=== PATIENT | female | born 1970 | race Caucasian/White ===

== ENCOUNTER → 2018-01-26 | Outpatient (CLI) | payer OTHER ==
[~2018-01-26] MED LIST: ADAL40PE SQ; TRAM50TA2 PO
[2018-01-26 17:40] LABS: BASOPHILS % (AUTO) 0.8 % (0.0-5.0); EOSINOPHILS % (AUTO) 4.1 % (0.0-8.0); HEMATOCRIT 37.1 % (36-48); LYMPHOCYTES % (AUTO) 26.6 % (21.0-51.0); MEAN CORPUSCULAR HEMOGLOBIN 31.9 pg (27.0-33.0); MEAN CORPUSCULAR HGB CONC 34.1 g/dL (32.0-36.0); MEAN CORPUSCULAR VOLUME 93.6 fL (79-99); MONOCYTES % (AUTO) 10.9 % (3.0-13.0); NEUTROPHILS % (AUTO) 57.6 % (40.0-77.0); PLATELET COUNT (AUTO) 276 K/uL (130-400); RED BLOOD CELL COUNT(AUTO) 3.97 MIL/uL (4.00-5.50); RED CELL DISTRIBUTION WIDTH 14.1 % (11.0-15.5); WHITE BLOOD COUNT (AUTO) 5.9 K/uL (4.8-10.8)
[2018-01-26 18:18] LABS: ALBUMIN 3.4 g/dL (3.5-5.0); BILIRUBIN,TOTAL 0.3 mg/dL (0.2-1.0); HIGH SENSITIVITY CRP 1.15 mg/L (0.0-3.0); POTASSIUM 3.7 mmol/L (3.5-5.1); TOTAL PROTEIN, SERUM 7.5 g/dL (6.0-8.3)
[2018-01-26 18:44] LABS: ERYTHROCYTE SEDIMENTATION RATE 33 MM/HR (0-20)
[2018-01-27 07:30] LABS: HEPATITIS Bs ANTIGEN SCREEN P Negative (Negative)
== END | disposition home or self-care (01) ==
LOC: LAB 07:47
PROVIDERS: ATTEND Internal Medicine Gastroenterology
DX: K51.50 Left sided colitis without complications (principal); K21.9 Gastro-esophageal reflux disease without esophagitis; Z72.89 Other problems related to lifestyle
CPT/HCPCS: 36415; 80053; 82306; 83993; 85025; 85651; 86141; 86480; 87340

== ENCOUNTER → 2018-02-21 | Outpatient (CLI) | payer OTHER | END | disposition home or self-care (01) | LOC: RAH 07:57 | PROVIDERS: ATTEND Internal Medicine Gastroenterology | DX: Z11.1 Encounter for screening for respiratory tuberculosis (principal); K51.519 Left sided colitis with unspecified complications | CPT/HCPCS: 71045 ==

== ENCOUNTER → 2018-02-25 | Outpatient (CLI) | payer OTHER ==
[2018-02-25 10:05] LABS: BASOPHILS % (AUTO) 0.4 % (0.0-5.0); EOSINOPHILS % (AUTO) 3.4 % (0.0-8.0); HEMATOCRIT 36.8 % (36-48); LYMPHOCYTES % (AUTO) 22.1 % (21.0-51.0); MEAN CORPUSCULAR HEMOGLOBIN 32.2 pg (27.0-33.0); MEAN CORPUSCULAR HGB CONC 34.4 g/dL (32.0-36.0); MEAN CORPUSCULAR VOLUME 93.8 fL (79-99); MONOCYTES % (AUTO) 10.3 % (3.0-13.0); NEUTROPHILS % (AUTO) 63.8 % (40.0-77.0); PLATELET COUNT (AUTO) 268 K/uL (130-400); RED BLOOD CELL COUNT(AUTO) 3.93 MIL/uL (4.00-5.50); RED CELL DISTRIBUTION WIDTH 12.9 % (11.0-15.5); WHITE BLOOD COUNT (AUTO) 6.5 K/uL (4.8-10.8)
== END | disposition home or self-care (01) ==
LOC: LAB 09:33
PROVIDERS: ATTEND Family Medicine
DX: R59.1 Generalized enlarged lymph nodes (principal)
CPT/HCPCS: 36415; 85025

== ENCOUNTER 2018-05-09 11:36 | Emergency (ER) | payer OTHER ==
[2018-05-09] MEDS ORDERED: MAG HYDROX/AL HYDROX/SIMETH ES 30 ML SUSP UDCUP ONE (12:06)
[2018-05-09] MEDS ORDERED: LIDOCAINE HCL 2% VISCOUS 15 ML UDCUP ONE (12:06)
[2018-05-09 12:08] LABS: BASOPHILS % (AUTO) 0.4 % (0.0-5.0); EOSINOPHILS % (AUTO) 7.1 % (0.0-8.0); HEMATOCRIT 35.4 % (36-48); LYMPHOCYTES % (AUTO) 19.8 % (21.0-51.0); MEAN CORPUSCULAR HGB CONC 33.3 g/dL (32.0-36.0); MEAN CORPUSCULAR VOLUME 93.1 fL (79-99); MONOCYTES % (AUTO) 6.5 % (3.0-13.0); NEUTROPHILS % (AUTO) 66.2 % (40.0-77.0); NUCLEATED RED BLOOD CELLS 0.1 % (0.0-0.19); PLATELET COUNT (AUTO) 369 K/uL (130-400); RED CELL DISTRIBUTION WIDTH 13.5 % (11.0-15.5)
[2018-05-09 12:12] LABS: APPEARANCE,URINE Clear (CLEAR); BILIRUBIN,URINE Negative (NEGATIVE); COLOR,URINE Yellow (YELLOW); GLUCOSE, URINE (UA) Negative (NEGATIVE); KETONES,URINE Negative (NEGATIVE); LEUKOCYTE ESTERASE ,URINE Small (NEGATIVE); NITRATE,URINE Negative (NEGATIVE); OCCULT BLOOD,URINE Large (NEGATIVE); PROTEIN,URINE Negative (NEGATIVE); UROBILINOGEN,URINE 0.2 mg/dL (0.2-1.0)
[2018-05-09 12:14] LABS: HCG,QUAL RESULT NEGATIVE (NEGATIVE)
[2018-05-09 12:17] LABS: CREATININE 0.8 mg/dL (0.5-1.5); POTASSIUM 3.5 mmol/L (3.5-5.1)
[2018-05-09 12:22] LABS: ALBUMIN 3.1 g/dL (3.5-5.0); BILIRUBIN,TOTAL 0.4 mg/dL (0.2-1.0); TOTAL PROTEIN, SERUM 6.8 g/dL (6.0-8.3)
[2018-05-09 12:23] LABS: BACTERIA,URINE Few /HPF (None Seen); MUCUS,URINE Moderate LPF (None Seen); RBC,URINE 51-100 /HPF (0-1)
[2018-05-09] MEDS ORDERED: KETOROLAC TROMETHAMINE 30MG/ML ONE (13:30)
[2018-05-09] MEDS ORDERED: FAMOTIDINE/PF 20 MG/2 ML VIAL IV ONE (13:31)
== END 2018-05-09 13:51 | disposition home or self-care (01) ==
LOC: EDH 11:36
DX: R10.13 Epigastric pain (principal); R11.0 Nausea; Z88.8 Allergy status to other drugs, medicaments and biological substances
CPT/HCPCS: 36415; 74176; 80053; 81001; 81025; 82150; 82550; 83690; 84484; 85025; 93005; 96374; 96375; 99284; J1885; J3490

== ENCOUNTER 2018-12-07 19:48 | Emergency (ER) | payer OTHER ==
[2018-12-07] MEDS ORDERED: METHYLPREDNISOLONE SOD SUCC 125MG/2ML VIAL ONE (20:09)
[2018-12-07] MEDS ORDERED: DiphenhydrAMINE HCL 50 MG/ML VIAL ONE (20:09)
[2018-12-07] MEDS ORDERED: FAMOTIDINE/PF 20 MG/2 ML VIAL IV ONE (20:10)
[2018-12-07] MEDS ORDERED: SODIUM CHLORIDE 0.9% 1000ML 1,000 ML IV ONE (20:11)
== END 2018-12-07 20:55 | disposition home or self-care (01) ==
LOC: EDH 19:48
DX: L50.0 Allergic urticaria (principal); Z88.1 Allergy status to other antibiotic agents; Z98.890 Other specified postprocedural states
CPT/HCPCS: 96374; 96375; 99284; J1200; J2930; J3490; J7030

== ENCOUNTER 2019-04-01 09:10 | Emergency (ER) | payer OTHER ==
[2019-04-01 09:41] LABS: BASOPHILS % (AUTO) 0.2 % (0.0-5.0); EOSINOPHILS % (AUTO) 1.7 % (0.0-8.0); HEMATOCRIT 36.9 % (36-48); LYMPHOCYTES % (AUTO) 1.9 % (21.0-51.0); MEAN CORPUSCULAR HEMOGLOBIN 30.8 pg (27.0-33.0); MEAN CORPUSCULAR VOLUME 90.6 fL (79-99); MONOCYTES % (AUTO) 4.2 % (3.0-13.0); PLATELET COUNT (AUTO) 233 K/uL (130-400); RED BLOOD CELL COUNT(AUTO) 4.08 MIL/uL (4.00-5.50); WHITE BLOOD COUNT (AUTO) 10.4 K/uL (4.8-10.8)
[2019-04-01 09:45] LABS: APPEARANCE,URINE Clear (CLEAR); BILIRUBIN,URINE Negative (NEGATIVE); COLOR,URINE Yellow (YELLOW); GLUCOSE, URINE (UA) Negative (NEGATIVE); KETONES,URINE Trace mg/dL (NEGATIVE); LEUKOCYTE ESTERASE ,URINE Negative (NEGATIVE); NITRATE,URINE Negative (NEGATIVE); OCCULT BLOOD,URINE Large (NEGATIVE); PROTEIN,URINE Negative (NEGATIVE); UROBILINOGEN,URINE 0.2 mg/dL (0.2-1.0)
[2019-04-01 09:49] LABS: CREATININE 0.9 mg/dL (0.5-1.5); INR 0.92 (0.85-1.15); PARTIAL THROMBOPLASTIN TIME 23.1 SEC (26.3-35.5); POTASSIUM 3.9 mmol/L (3.5-5.1); PROTHROMBIN TIME 9.7 SEC (9.6-11.6)
[2019-04-01 09:53] LABS: ALBUMIN 3.3 g/dL (3.5-5.0); BILIRUBIN,TOTAL 0.3 mg/dL (0.2-1.0); TOTAL PROTEIN, SERUM 7.1 g/dL (6.0-8.3)
[2019-04-01 10:17] LABS: BACTERIA,URINE Rare /HPF (None Seen); MUCUS,URINE Moderate LPF (None Seen); WBC,URINE None Seen /HPF (0-1)
[2019-04-01] MEDS ORDERED: KETOROLAC TROMETHAMINE 30MG/ML ONE (10:54)
[2019-04-01] MEDS ORDERED: DiphenhydrAMINE HCL 50 MG/ML VIAL ONE (11:52)
[2019-04-01] MEDS ORDERED: HYOSCYAMINE SULFATE 0.125 MG TAB.SUBL SL ONE (12:04)
== END 2019-04-01 13:52 | disposition home or self-care (01) ==
LOC: EDH 09:10
DX: E86.0 Dehydration (principal); R10.32 Left lower quadrant pain; R50.9 Fever, unspecified; R51 Headache; Z90.49 Acquired absence of other specified parts of digestive tract; Z88.8 Allergy status to other drugs, medicaments and biological substances
CPT/HCPCS: 36415; 74176; 80053; 81001; 81025; 82150; 82550; 83605; 83690; 84484; 85025; 85610; 85651; 85730; 86140; 87040 ×2; 87804 ×2; 87880; 93005; 96361; 96374; 96375; 99285; J1200; J1885

== ENCOUNTER → 2019-04-04 | Outpatient (CLI) | payer OTHER | END | disposition home or self-care (01) | LOC: LAB 07:48 | PROVIDERS: ATTEND Internal Medicine Gastroenterology | DX: K51.90 Ulcerative colitis, unspecified, without complications (principal) | CPT/HCPCS: 87046 ==

== ENCOUNTER → 2019-04-27 | Outpatient (CLI) | payer OTHER ==
[2019-05-01 07:14] LABS: HEPATITIS Bs ANTIGEN SCREEN P Negative (Negative)
== END | disposition home or self-care (01) ==
LOC: LAB 15:06
PROVIDERS: ATTEND Internal Medicine Gastroenterology
DX: K51.519 Left sided colitis with unspecified complications (principal)
CPT/HCPCS: 36415; 86480; 87340

== ENCOUNTER 2020-02-18 17:45 | Emergency (ER) | payer OTHER ==
[2020-02-18] MEDS ORDERED: ACETAMINOPHEN 325 MG TAB ONE (18:05)
[2020-02-18 18:56] LABS: APPEARANCE,URINE Clear (CLEAR); BILIRUBIN,URINE Negative (NEGATIVE); COLOR,URINE Yellow (YELLOW); GLUCOSE, URINE (UA) Negative (NEGATIVE); KETONES,URINE Negative (NEGATIVE); LEUKOCYTE ESTERASE ,URINE Negative (NEGATIVE); NITRATE,URINE Negative (NEGATIVE); OCCULT BLOOD,URINE Negative (NEGATIVE); PH,URINE 5.5 (5.0-8.0); PROTEIN,URINE Negative (NEGATIVE); UROBILINOGEN,URINE 0.2 mg/dL (0.2-1.0)
[2020-02-18 19:00] LABS: HCG,QUAL RESULT NEGATIVE (NEGATIVE)
[2020-02-18 19:10] LABS: RAPID GROUP A STREP NEGATIVE (NEGATIVE)
== END 2020-02-18 19:50 | disposition home or self-care (01) ==
LOC: EDH 17:45
DX: J02.9 Acute pharyngitis, unspecified (principal); R50.9 Fever, unspecified; M79.10 Myalgia, unspecified site; Z20.828 Contact with and (suspected) exposure to other viral communicable diseases; Z90.49 Acquired absence of other specified parts of digestive tract
CPT/HCPCS: 81003; 81025; 87804; 87880

== ENCOUNTER 2021-03-24 06:28 | Day surgery (SDC) | payer OTHER ==
[~2021-03-24] VITALS: Ht 154.9 cm; Wt 59.1 kg
[~2021-03-24 06:28] MED LIST changes: +0.9%NACL 1000ML 1,000 ML IV ONE
[2021-03-24 06:50] VITALS: BP 109/64
[2021-03-24 07:19] LABS: CREATININE 0.8 mg/dL (0.5-1.5); POTASSIUM 4.5 mmol/L (3.5-5.1)
[2021-03-24] MEDS ORDERED: ACET-2743 PO (07:51)
[2021-03-24] MEDS ORDERED: OMEG-148 PO (07:52)
[2021-03-24] MEDS ORDERED: PROPOFOL 10 MG/ML 20ML VIAL IV ONE (09:17)
[2021-03-24 09:40] VITALS: BP 89/53
[2021-03-24 09:53] VITALS: BP 99/50
[2021-03-24 10:00] VITALS: BP 94/57
== END 2021-03-24 10:05 | disposition home or self-care (01) ==
LOC: DAH 06:28 → ENDO 06:28
PROVIDERS: ATTEND Internal Medicine Gastroenterology
DX: Z12.11 Encounter for screening for malignant neoplasm of colon (principal); K51.50 Left sided colitis without complications; K52.9 Noninfective gastroenteritis and colitis, unspecified; F41.9 Anxiety disorder, unspecified; F32.9 Major depressive disorder, single episode, unspecified; E55.9 Vitamin D deficiency, unspecified; Z88.8 Allergy status to other drugs, medicaments and biological substances; Z79.899 Other long term (current) drug therapy; Z20.822 Contact with and (suspected) exposure to COVID-19
CPT/HCPCS: 36415; 45380; 80048; 84703; 87635; A4215 ×2; A4221; A4222; A4223; A4606; A4620; A4663; C9803; J2704; J7030

== ENCOUNTER → 2021-09-16 | Outpatient (CLI) | payer OTHER ==
[~2021-09-16] MED LIST changes: -0.9%NACL 1000ML 1,000 ML IV ONE; +ACET-2743 PO; -ADAL40PE SQ; +OMEG-148 PO; -TRAM50TA2 PO
== END | disposition home or self-care (01) ==
LOC: RAH 11:08
PROVIDERS: ATTEND Obstetrics & Gynecology
DX: D25.9 Leiomyoma of uterus, unspecified (principal); R93.89 Abnormal findings on diagnostic imaging of other specified body structures; N92.1 Excessive and frequent menstruation with irregular cycle; Z97.5 Presence of (intrauterine) contraceptive device
CPT/HCPCS: 76830

== ENCOUNTER 2022-02-06 10:20 | Emergency (ER) | payer OTHER ==
[~2022-02-06] VITALS: Ht 154.9 cm; Wt 61.2 kg
[2022-02-06 10:42] LABS: BASOPHILS % (AUTO) 0.8 % (0.0-5.0); EOSINOPHILS % (AUTO) 2.4 % (0.0-8.0); HEMATOCRIT 31.2 % (36-48); LYMPHOCYTES % (AUTO) 13.1 % (21.0-51.0); MEAN CORPUSCULAR HEMOGLOBIN 23.3 pg (27.0-33.0); MEAN CORPUSCULAR HGB CONC 29.8 g/dL (32.0-36.0); MONOCYTES % (AUTO) 8.7 % (3.0-13.0); NEUTROPHILS % (AUTO) 74.7 % (40.0-77.0); PLATELET COUNT (AUTO) 265 K/uL (130-400); RED CELL DISTRIBUTION WIDTH 17.9 % (11.0-15.5); WHITE BLOOD COUNT (AUTO) 7.4 K/uL (4.8-10.8)
[2022-02-06 10:53] LABS: CREATININE 0.8 mg/dL (0.5-1.5); POTASSIUM 4.2 mmol/L (3.5-5.1)
[2022-02-06 10:58] LABS: ALBUMIN 3.4 g/dL (3.5-5.0); TOTAL PROTEIN, SERUM 7.4 g/dL (6.0-8.3)
[2022-02-06 11:45] LABS: APPEARANCE,URINE CLEAR (CLEAR); BILIRUBIN,URINE NEGATIVE (NEGATIVE); COLOR,URINE LIGHT-YELLOW (YELLOW); GLUCOSE, URINE (UA) NEGATIVE (NEGATIVE); KETONES,URINE NEGATIVE (NEGATIVE); LEUKOCYTE ESTERASE ,URINE NEGATIVE Leu/uL (NEGATIVE); NITRATE,URINE NEGATIVE (NEGATIVE); PH,URINE 5.5 (5.0-8.0); PROTEIN,URINE NEGATIVE (NEGATIVE); UROBILINOGEN,URINE 0.2 mg/dL (0.2-1.0)
[2022-02-06 12:14] LABS: MUCUS,URINE RARE LPF (None Seen); RBC,URINE 0-1 /HPF (0-1); SQUAMOUS EPITHELIAL CELL,UR RARE /HPF (0-2)
[2022-02-06] MEDS ORDERED: MECLIZINE HCL 25 MG TABLET PO SCH (12:32)
[2022-02-06] MEDS ORDERED: MECLIZINE HCL 25 MG TABLET ONE (12:33)
[2022-02-06] MEDS ORDERED: 0.9%NACL 1000ML 1,000 ML IV SCH (13:00)
[2022-02-06] MEDS ORDERED: DEXAMETHASONE SOD PHOSPHATE 4 MG/ML 1ML VIAL IV STA (13:53)
[2022-02-06 15:10] VITALS: BP 120/69
[2022-02-06] MEDS ORDERED: MECL-262 PO (15:28)
[2022-02-06] MEDS ORDERED: DOCU-116 PO (15:28)
[2022-02-06] MEDS ORDERED: FERR324T4 PO (15:28)
== END 2022-02-06 16:06 | disposition home or self-care (01) ==
LOC: EDH 10:20
DX: R42 Dizziness and giddiness (principal); H92.02 Otalgia, left ear; R10.9 Unspecified abdominal pain; Z88.1 Allergy status to other antibiotic agents; Z90.49 Acquired absence of other specified parts of digestive tract
CPT/HCPCS: 99285; 96374; 70450; 96361; 84484; 80053; 85025; 87804 ×2; 82948; 81001; 36415; 93005; J1100; J7030; 96375

== ENCOUNTER 2022-02-22 10:35 | Day surgery (SDC) | payer OTHER ==
[2022-02-22] VITALS (7 sets, daily range): BP systolic 95–133; BP diastolic 79–83
[~2022-02-22 10:35] MED LIST changes: +DOCU-116 PO; +FERR324T4 PO; +MECL-262 PO
[2022-02-22] MEDS ORDERED: PROPOFOL 10 MG/ML 20ML VIAL IV ONE (12:16)
[2022-02-22] MEDS ORDERED: LIDOCAINE PF 100MG/5ML (2%) SYRINGE 5ML ONE (12:16)
== END 2022-02-22 14:38 | disposition home or self-care (01) ==
LOC: DAH 10:35 → ENDO 10:35
PROVIDERS: ATTEND Internal Medicine Gastroenterology
DX: D50.9 Iron deficiency anemia, unspecified (principal); Z20.822 Contact with and (suspected) exposure to COVID-19; K62.5 Hemorrhage of anus and rectum; K51.00 Ulcerative (chronic) pancolitis without complications; K62.89 Other specified diseases of anus and rectum; K52.89 Other specified noninfective gastroenteritis and colitis; E55.9 Vitamin D deficiency, unspecified; K21.9 Gastro-esophageal reflux disease without esophagitis; F32.A Depression, unspecified; F41.9 Anxiety disorder, unspecified; Z90.49 Acquired absence of other specified parts of digestive tract; Z98.890 Other specified postprocedural states
CPT/HCPCS: 87426; 45380; 43239; 84703; 36415; J2001; J2704; A4620; A4215; A4223; A4222; A4221; A4663; A4216; J7030; A4606

== ENCOUNTER → 2022-03-16 | Outpatient (CLI) | payer OTHER ==
[2022-03-16 08:57] LABS: BASOPHILS % (AUTO) 0.2 % (0.0-5.0); EOSINOPHILS % (AUTO) 0.3 % (0.0-8.0); HEMATOCRIT 32.4 % (36-48); LYMPHOCYTES % (AUTO) 24.2 % (21.0-51.0); MEAN CORPUSCULAR HEMOGLOBIN 23.3 pg (27.0-33.0); MEAN CORPUSCULAR HGB CONC 29.9 g/dL (32.0-36.0); MEAN CORPUSCULAR VOLUME 77.7 fL (79-99); MONOCYTES % (AUTO) 7.8 % (3.0-13.0); NEUTROPHILS % (AUTO) 65.9 % (40.0-77.0); NUCLEATED RED BLOOD CELLS 0.1 % (0.0-0.19); PLATELET COUNT (AUTO) 453 K/uL (130-400); RED BLOOD CELL COUNT(AUTO) 4.17 MIL/uL (4.00-5.50); RED CELL DISTRIBUTION WIDTH 18.5 % (11.0-15.5); WHITE BLOOD COUNT (AUTO) 16.1 K/uL (4.8-10.8)
[2022-03-16 09:28] LABS: % IRON SATURATION 6.6 % (22-44)
[2022-03-16 23:09] LABS: HEPATITIS A IGM ANTIBODY Non-Reactive (Nonreactive); HEPATITIS B SURFACE ANTIGEN Non-Reactive (Nonreactive); HEPATITIS C ANTIBODY Non-Reactive (Nonreactive)
[2022-03-16 23:10] LABS: HEPATITIS B CORE IGM ANTIBODY Non-Reactive (Negative)
== END | disposition home or self-care (01) ==
LOC: LAB 08:00
PROVIDERS: ATTEND Internal Medicine Gastroenterology
DX: K51.00 Ulcerative (chronic) pancolitis without complications (principal)
CPT/HCPCS: 36415; 80074; 82306; 82728; 83540; 83550; 83993; 85025; 86140; 86480; 86706

== ENCOUNTER → 2022-03-18 | Outpatient (CLI) | payer OTHER | END | disposition home or self-care (01) | LOC: LAB 03-17 13:41 | PROVIDERS: ATTEND Internal Medicine Gastroenterology | DX: K51.00 Ulcerative (chronic) pancolitis without complications (principal) | CPT/HCPCS: 36415; 82542 ==

== ENCOUNTER → 2022-06-08 | Outpatient (CLI) | payer OTHER | END | disposition home or self-care (01) | LOC: LAB 08:08 | PROVIDERS: ATTEND Internal Medicine | DX: K51.00 Ulcerative (chronic) pancolitis without complications (principal) | CPT/HCPCS: 36415; 80074; 82306; 86480; 86707; 87350 ==

== ENCOUNTER → 2022-06-25 | Outpatient (CLI) | payer OTHER ==
[2022-06-25 14:08] LABS: BASOPHILS % (AUTO) 0.5 % (0.0-5.0); EOSINOPHILS % (AUTO) 1.7 % (0.0-8.0); HEMATOCRIT 31.3 % (36-48); LYMPHOCYTES % (AUTO) 18.9 % (21.0-51.0); MEAN CORPUSCULAR HEMOGLOBIN 26.6 pg (27.0-33.0); MEAN CORPUSCULAR HGB CONC 30.7 g/dL (32.0-36.0); MEAN CORPUSCULAR VOLUME 86.7 fL (79-99); MONOCYTES % (AUTO) 8.9 % (3.0-13.0); NEUTROPHILS % (AUTO) 69.7 % (40.0-77.0); PLATELET COUNT (AUTO) 356 K/uL (130-400); RED BLOOD CELL COUNT(AUTO) 3.61 MIL/uL (4.00-5.50); RED CELL DISTRIBUTION WIDTH 16.7 % (11.0-15.5); WHITE BLOOD COUNT (AUTO) 9.8 K/uL (4.8-10.8)
[2022-06-25 14:20] LABS: % IRON SATURATION 8.4 % (22-44)
[2022-06-25 14:24] LABS: ALBUMIN 3.5 g/dL (3.5-5.0); CREATININE 0.8 mg/dL (0.5-1.5); POTASSIUM 3.9 mmol/L (3.5-5.1); TOTAL PROTEIN, SERUM 7.5 g/dL (6.0-8.3)
[2022-06-25 22:32] LABS: HEPATITIS B CORE IGM ANTIBODY Non-Reactive (Negative); HEPATITIS B SURFACE ANTIGEN Non-Reactive (Nonreactive)
== END | disposition home or self-care (01) ==
LOC: LAB 13:18
PROVIDERS: ATTEND Internal Medicine Gastroenterology
DX: K51.00 Ulcerative (chronic) pancolitis without complications (principal); D50.9 Iron deficiency anemia, unspecified
CPT/HCPCS: 36415; 80053; 82728; 83540; 83550; 85025; 86704; 86705; 86706; 87340

== ENCOUNTER 2022-08-03 14:31 | Emergency (ER) | payer OTHER ==
[~2022-08-03] VITALS: Ht 152.4 cm; Wt 59.9 kg
[2022-08-03 15:40] LABS: BASOPHILS % (AUTO) 0.4 % (0.0-5.0); EOSINOPHILS % (AUTO) 4.8 % (0.0-8.0); HEMATOCRIT 31.9 % (36-48); LYMPHOCYTES % (AUTO) 13.3 % (21.0-51.0); MEAN CORPUSCULAR HEMOGLOBIN 27.2 pg (27.0-33.0); MEAN CORPUSCULAR HGB CONC 31.3 g/dL (32.0-36.0); MEAN CORPUSCULAR VOLUME 86.7 fL (79-99); MONOCYTES % (AUTO) 6.8 % (3.0-13.0); NEUTROPHILS % (AUTO) 74.3 % (40.0-77.0); PLATELET COUNT (AUTO) 440 K/uL (130-400); RED BLOOD CELL COUNT(AUTO) 3.68 MIL/uL (4.00-5.50); RED CELL DISTRIBUTION WIDTH 19.1 % (11.0-15.5)
[2022-08-03 15:53] LABS: POTASSIUM 3.3 mmol/L (3.5-5.1)
[2022-08-03 15:57] LABS: ALBUMIN 2.9 g/dL (3.5-5.0); TOTAL PROTEIN, SERUM 6.8 g/dL (6.0-8.3)
[2022-08-03] MEDS ORDERED: IOHEXOL 350 MG/ML 100ML INFUS..BTL IV ONE (17:44)
[2022-08-03] MEDS ORDERED: FERR324T PO (19:09)
[2022-08-03] MEDS ORDERED: PRED20TA3 PO (19:09)
[2022-08-03] MEDS ORDERED: PREDNISONE 20 MG TABLET PO ONE (19:30)
[2022-08-03 19:49] VITALS: BP 136/82
== END 2022-08-03 19:53 | disposition home or self-care (01) ==
LOC: EDH 14:31
DX: K51.90 Ulcerative colitis, unspecified, without complications (principal); Z79.899 Other long term (current) drug therapy; Z98.890 Other specified postprocedural states; Z88.8 Allergy status to other drugs, medicaments and biological substances
CPT/HCPCS: 99285; 74177; 82270; 80053; 85025; 86850; 86900; 86901; 36415; Q9967

== ENCOUNTER → 2022-08-10 | Outpatient (CLI) | payer OTHER ==
[~2022-08-10] MED LIST changes: +FERR324T PO; +PRED20TA3 PO
[2022-08-10 09:00] LABS: CHOLESTEROL 212 mg/dL (<200); HDL CHOLESTEROL 59 mg/dL (35-85); LDL DIRECT 130 mg/dL (0-99); TRIGLYCERIDES 98 mg/dL (30-200)
== END | disposition home or self-care (01) ==
LOC: LAB 08:12
PROVIDERS: ATTEND Urology
DX: K51.00 Ulcerative (chronic) pancolitis without complications (principal)
CPT/HCPCS: 36415; 80061

== ENCOUNTER → 2022-11-29 | Outpatient (CLI) | payer OTHER ==
[2022-11-29 08:42] LABS: BASOPHILS % (AUTO) 0.8 % (0.0-5.0); EOSINOPHILS % (AUTO) 3.4 % (0.0-8.0); HEMATOCRIT 30.1 % (36-48); LYMPHOCYTES % (AUTO) 13.9 % (21.0-51.0); MEAN CORPUSCULAR HEMOGLOBIN 23.3 pg (27.0-33.0); MEAN CORPUSCULAR HGB CONC 28.9 g/dL (32.0-36.0); MEAN CORPUSCULAR VOLUME 80.5 fL (79-99); MONOCYTES % (AUTO) 8.2 % (3.0-13.0); NEUTROPHILS % (AUTO) 72.4 % (40.0-77.0); PLATELET COUNT (AUTO) 444 K/uL (130-400); RED BLOOD CELL COUNT(AUTO) 3.74 MIL/uL (4.00-5.50); RED CELL DISTRIBUTION WIDTH 15.9 % (11.0-15.5); RETICULOCYTE % (AUTO) 1.95 % (0.42-2.23); WHITE BLOOD COUNT (AUTO) 9.1 K/uL (4.8-10.8)
[2022-11-29 09:21] LABS: % IRON SATURATION 2.1 % (22-44)
[2022-11-29 09:41] LABS: APPEARANCE,URINE CLOUDY (CLEAR); BILIRUBIN,URINE NEGATIVE (NEGATIVE); COLOR,URINE YELLOW (YELLOW); GLUCOSE, URINE (UA) NEGATIVE (NEGATIVE); KETONES,URINE NEGATIVE (NEGATIVE); LEUKOCYTE ESTERASE ,URINE NEGATIVE Leu/uL (NEGATIVE); NITRATE,URINE NEGATIVE (NEGATIVE); OCCULT BLOOD,URINE NEGATIVE (NEGATIVE); PH,URINE 5.5 (5.0-8.0); PROTEIN,URINE 10 mg/dL (NEGATIVE); UROBILINOGEN,URINE 0.2 mg/dL (0.2-1.0)
[2022-11-29 09:51] LABS: BACTERIA,URINE FEW /HPF (None Seen); MUCUS,URINE MOD LPF (None Seen); SQUAMOUS EPITHELIAL CELL,UR MANY /HPF (0-2)
[2022-11-29 10:12] LABS: ALBUMIN 3.3 g/dL (3.5-5.0); CREATININE 0.8 mg/dL (0.5-1.5); POTASSIUM 3.9 mmol/L (3.5-5.1); TOTAL PROTEIN, SERUM 7.6 g/dL (6.0-8.3)
== END | disposition home or self-care (01) ==
LOC: LAB 11-26 10:22
PROVIDERS: ATTEND Family Medicine
DX: K51.90 Ulcerative colitis, unspecified, without complications (principal); D50.0 Iron deficiency anemia secondary to blood loss (chronic); E78.00 Pure hypercholesterolemia, unspecified; Z79.60 Long term (current) use of unspecified immunomodulators and immunosuppressants
CPT/HCPCS: 36415; 80053; 80061; 81001; 82607; 82728; 85025; 87088

== ENCOUNTER → 2023-02-10 | Outpatient (CLI) | payer OTHER ==
[2023-02-10 19:51] LABS: HEMATOCRIT 33.3 % (36-48); MEAN CORPUSCULAR HEMOGLOBIN 29.2 pg (27.0-33.0); MEAN CORPUSCULAR HGB CONC 31.8 g/dL (32.0-36.0); MEAN CORPUSCULAR VOLUME 91.7 fL (79-99); NEUTROPHILS % (AUTO) 69.9 % (40.0-77.0); PLATELET COUNT (AUTO) 407 K/uL (130-400); RED BLOOD CELL COUNT(AUTO) 3.63 MIL/uL (4.00-5.50); WHITE BLOOD COUNT (AUTO) 8.2 K/uL (4.8-10.8)
[2023-02-10 19:52] LABS: BASOPHILS # (AUTO) 0.05 K/uL (0.00-0.20); BASOPHILS % (AUTO) 0.6 % (0.0-5.0); EOSINOPHILS # (AUTO) 0.33 K/uL (0.00-0.70); IMMATURE GRANULOCYTE ABSOLUTE 0.02 K/uL (0-1); LYMPHOCYTES # (AUTO) 1.4 K/uL (1.0-4.8); LYMPHOCYTES % (AUTO) 17.5 % (21.0-51.0); MONOCYTES # (AUTO) 0.6 K/uL (0.1-1.0); MONOCYTES % (AUTO) 7.8 % (3.0-13.0); NEUTROPHILS # (AUTO) 5.7 K/uL (1.8-7.7)
== END | disposition home or self-care (01) ==
LOC: LAB 11:00
PROVIDERS: ATTEND Internal Medicine Gastroenterology
DX: K51.00 Ulcerative (chronic) pancolitis without complications (principal); D50.9 Iron deficiency anemia, unspecified; E55.9 Vitamin D deficiency, unspecified
CPT/HCPCS: 36415; 82306; 83993; 85025; 86140

== ENCOUNTER 2023-04-06 05:56 | Day surgery (SDC) | payer OTHER ==
[2023-04-06] VITALS (8 sets, daily range): BP systolic 108–119; BP diastolic 71–77; PULSE 61–86; RESP 14–17
[~2023-04-06] VITALS: Ht 154.9 cm; Wt 65.8 kg
[2023-04-06] MEDS ORDERED: ADAL40SY SQ (06:56)
[2023-04-06] MEDS ORDERED: PROPOFOL 10 MG/ML 20ML VIAL IV ONE (07:10)
[2023-04-06] MEDS ORDERED: GLYCOPYRROLATE 0.2 MG/ML 5 ML VIAL ONE (07:10)
== END 2023-04-06 08:25 | disposition home or self-care (01) ==
LOC: DAH 05:56 → ENDO 05:56
PROVIDERS: ATTEND Internal Medicine Gastroenterology
DX: K51.00 Ulcerative (chronic) pancolitis without complications (principal); K62.5 Hemorrhage of anus and rectum; R19.05 Periumbilic swelling, mass or lump; F41.9 Anxiety disorder, unspecified; F32.A Depression, unspecified; D50.9 Iron deficiency anemia, unspecified; E55.9 Vitamin D deficiency, unspecified; Z90.49 Acquired absence of other specified parts of digestive tract; Z98.890 Other specified postprocedural states; Z79.899 Other long term (current) drug therapy
CPT/HCPCS: 45380; J2704; J3490; A4620; A4215 ×2; A4223; A7002; A4221; A4663; J7030; A4606

== ENCOUNTER → 2023-06-24 | Outpatient (CLI) | payer OTHER ==
[~2023-06-24] MED LIST changes: -ACET-2743 PO; +ADAL40SY SQ; -DOCU-116 PO; -FERR324T PO; -FERR324T4 PO; -MECL-262 PO; -OMEG-148 PO; -PRED20TA3 PO
[2023-06-24 08:48] LABS: BASOPHILS # (AUTO) 0.06 K/uL (0.00-0.20); EOSINOPHILS # (AUTO) 0.26 K/uL (0.00-0.70); EOSINOPHILS % (AUTO) 4.5 % (0.0-8.0); IMMATURE GRANULOCYTE ABSOLUTE 0.01 K/uL (0-1); LYMPHOCYTES # (AUTO) 1.4 K/uL (1.0-4.8); LYMPHOCYTES % (AUTO) 23.6 % (21.0-51.0); MEAN CORPUSCULAR HEMOGLOBIN 22.9 pg (27.0-33.0); MEAN CORPUSCULAR HGB CONC 30.3 g/dL (32.0-36.0); MEAN CORPUSCULAR VOLUME 75.6 fL (79-99); MONOCYTES # (AUTO) 0.5 K/uL (0.1-1.0); MONOCYTES % (AUTO) 8.4 % (3.0-13.0); NEUTROPHILS # (AUTO) 3.6 K/uL (1.8-7.7); NEUTROPHILS % (AUTO) 62.3 % (40.0-77.0); PLATELET COUNT (AUTO) 394 K/uL (130-400); RED BLOOD CELL COUNT(AUTO) 3.97 MIL/uL (4.00-5.50); RED CELL DISTRIBUTION WIDTH 18.3 % (11.0-15.5); WHITE BLOOD COUNT (AUTO) 5.8 K/uL (4.8-10.8)
[2023-06-24 09:14] LABS: % IRON SATURATION 3.5 % (22-44); ALBUMIN 3.2 g/dL (3.5-5.0); BILIRUBIN,TOTAL 0.3 mg/dL (0.2-1.0); CREATININE 0.7 mg/dL (0.5-1.5); POTASSIUM 4.2 mmol/L (3.5-5.1); TOTAL PROTEIN, SERUM 7.3 g/dL (6.0-8.3)
[2023-06-24 09:24] LABS: INR <= 0.93 (0.85-1.15); PROTHROMBIN TIME 9.9 SEC (9.6-11.6)
[2023-06-24 09:26] LABS: PARTIAL THROMBOPLASTIN TIME 22.9 SEC (26.3-35.5)
[2023-06-24 16:51] LABS: HEPATITIS A IGM ANTIBODY Non-Reactive (Nonreactive); HEPATITIS B CORE IGM ANTIBODY Non-Reactive (Negative); HEPATITIS B SURFACE ANTIGEN Non-Reactive (Nonreactive); HEPATITIS C ANTIBODY Non-Reactive (Nonreactive)
[2023-06-28 18:10] LABS: QUANTIFERON MITOGEN VALUE >10.00 IU/mL (.)
== END | disposition home or self-care (01) ==
LOC: LAB 07:56
PROVIDERS: ATTEND Internal Medicine
DX: K51.00 Ulcerative (chronic) pancolitis without complications (principal)
CPT/HCPCS: 36415; 80053; 80061; 80074; 82728; 83540; 83550; 83993; 85025; 85610; 85730; 86480; 86707; 87350

== ENCOUNTER → 2023-11-04 | Outpatient (CLI) | payer OTHER | END | disposition home or self-care (01) | LOC: LAB 13:52 | PROVIDERS: ATTEND Internal Medicine | DX: K51.00 Ulcerative (chronic) pancolitis without complications (principal) | CPT/HCPCS: 36415; 83993 ==

== ENCOUNTER → 2024-02-22 | Outpatient (CLI) | payer OTHER ==
[2024-02-22 09:16] LABS: BASOPHILS # (AUTO) 0.07 K/uL (0.00-0.20); BASOPHILS % (AUTO) 1.2 % (0.0-5.0); EOSINOPHILS # (AUTO) 0.21 K/uL (0.00-0.70); EOSINOPHILS % (AUTO) 3.5 % (0.0-8.0); HEMATOCRIT 29.1 % (36-48); IMMATURE GRANULOCYTE ABSOLUTE 0.02 K/uL (0-1); LYMPHOCYTES # (AUTO) 1.4 K/uL (1.0-4.8); LYMPHOCYTES % (AUTO) 23.9 % (21.0-51.0); MEAN CORPUSCULAR HEMOGLOBIN 21.3 pg (27.0-33.0); MEAN CORPUSCULAR HGB CONC 29.2 g/dL (32.0-36.0); MEAN CORPUSCULAR VOLUME 72.9 fL (79-99); MONOCYTES # (AUTO) 0.5 K/uL (0.1-1.0); MONOCYTES % (AUTO) 7.7 % (3.0-13.0); NEUTROPHILS # (AUTO) 3.8 K/uL (1.8-7.7); NEUTROPHILS % (AUTO) 63.4 % (40.0-77.0); PLATELET COUNT (AUTO) 433 K/uL (130-400); RED BLOOD CELL COUNT(AUTO) 3.99 MIL/uL (4.00-5.50); RED CELL DISTRIBUTION WIDTH 18.4 % (11.0-15.5)
[2024-02-22 09:37] LABS: INR 0.95 (0.85-1.15); PROTHROMBIN TIME 10.3 SEC (9.6-11.6)
[2024-02-22 09:38] LABS: PARTIAL THROMBOPLASTIN TIME 21.9 SEC (26.3-35.5)
[2024-02-22 09:46] LABS: % IRON SATURATION 2.7 % (22-44)
[2024-02-22 09:53] LABS: ALBUMIN 3.7 g/dL (3.5-5.0); BILIRUBIN,TOTAL 0.6 mg/dL (0.2-1.0); CREATININE 0.8 mg/dL (0.5-1.0); POTASSIUM 4.4 mmol/L (3.5-5.1)
== END | disposition home or self-care (01) ==
LOC: LAB 08:40
PROVIDERS: ATTEND Internal Medicine
DX: E55.9 Vitamin D deficiency, unspecified (principal); D50.9 Iron deficiency anemia, unspecified
CPT/HCPCS: 36415; 80053; 82306; 82728; 83540; 83550; 85025; 85610; 85730

== ENCOUNTER → 2024-03-12 | Outpatient (CLI) | payer OTHER ==
--- NOTE | 2024-03-12 09:49 | HMCIMG ---
CT CORONARY CALCIFICATION SCORING: Anatomic images were reviewed. The calcium score is being generated and reported separately. This report is for the visualized anatomy only. Visualized portions of the lungs are clear. Hilar and mediastinal structures appear normal. Osseous structures are unremarkable. Impression: 1. Negative noncardiac anatomic findings. 2. The calcium score is 0 consistent with absence of calcified plaque. CT was performed with one or more following dose reduction techniques: automated exposure control, adjustment of the mA and kv according to patient's size, or use of a iterative reconstruction technique.
== END | disposition home or self-care (01) ==
LOC: RAH 08:13
PROVIDERS: ATTEND Internal Medicine
DX: Z13.6 Encounter for screening for cardiovascular disorders (principal)
CPT/HCPCS: 75571

== ENCOUNTER 2024-05-08 08:42 | Emergency (ER) | payer OTHER ==
[~2024-05-08] VITALS: Ht 154.9 cm; Wt 63.5 kg
--- NOTE | 2024-05-08 09:00 | NUR ---
PATIENT VERBALIZED CONSENT FOR PELVIC EXAM WITH PROVIDER, NURSE, AND ORIENTEE PRESENT.
[2024-05-08 09:03] VITALS: BP 162/85; PULSE 68; RESP 16; TEMP 98.3; O2SAT 98
--- NOTE | 2024-05-08 09:12 | ERN ---
ED Note History of Present Illness Stated Complaint: IUD PIECE BROKE OFF Chief Complaint: FORIEGN BODY VAGINA Time Seen by MD: 08:49 Dictation: 54-year-old female she comes to the ED. Because she was told by [facility]. Because her IUD had filled out. The 75% only one of the arms. Of the other one. Was retained. She does not have any belly pain nausea vomiting bleeding flank pain fevers chills Allergies: Coded Allergies: metronidazole (Unverified Allergy, Unknown, 08/11/16) Home Meds Reported Medications Adalimumab (Humira) 40 Mg/0.4 Ml Syringekit, 40 MG SQ [id number] 04/06/23 Past Medical History Past Medical History: No Pertinent History, Other Additional Past Medical Hx: ULCERATIVE COLITIS Surgical History: Cholecystectomy, Other Surgical History Other: ULCERATIVE COLITIS Social History: Negative Review of System Dictation Constitutional: Negative for fever,chills, and weight loss Eyes: Negative for injury, pain,redness, and discharge ENT: Negative for injury,pain or swelling Cardiovascular: Negative for chest pain, palpitations, and edema Respiratory: Negative for shortness of breath, cough, and wheezing, Abdomen/GI: Negative for abdominal pain, nausea, vomiting, diarrhea, and constipation Back: Negative for injury and pain : Negative for injury, bleeding and discharge MS/Extremity: Negative for injury and deformity Skin: Negative for rash, and discoloration Neuro: Negative for headache, weakness, numbness, tingling, and seizure Psych: Negative for suicide ideation, homicidal ideation, and hallucinations Initial Vital Sign VS Vital Signs Date Time Temp Pulse Resp B/P (MAP) Pulse Ox O2 Delivery O2 Flow Rate FiO2 05/08/24 08:43 99.0 72 20 158/84 99 Room Air 0 05/08/24 09:03 21 Physical Exam Dictation With industry operations investigator present. It is to industry operations investigator as a nurse said retread technician. Did do a sensory exam with her permission her request. Did not see any cuts scrapes lesions. Any issues with the cervix. Was not able to see the one of the arms of the IUD. General: awake, alert, NAD Head/Face: Normocephalic, atraumatic Eyes: PERRL, EOMI, vision at baseline ENT: oral cavity clear, TMs clear, no signs of infection Neck: Trachea midline, supple, no nuchal rigidity Cardiovascular: RRR, normal S1/S2, No MRGs, no JVD Respiratory: CTAB, no respiratory distress, No rales or wheezes Abdomen: Soft, non-tender, non-distended, normal bowel sounds, no guarding or rebound. Skin: Warm, dry, normal turgor, no rash MS/Extremity: Pulses equal, no cyanosis, neurovascular intact, FROM Neuro: COAx4, GCS 15, strength 5/5, CN 2-12 intact, normal cerebellar exam, normal gait, Psych: Normal behavior, mood, and affect normal ED Course ED Course Vital Signs Date Time Temp Pulse Resp B/P (MAP) Pulse Ox O2 Delivery O2 Flow Rate FiO2 05/08/24 09:03 98.2 68 16 162/85 98 Room Air* 0 21 05/08/24 08:43 99.0 72 20 158/84 99 Room Air 0 Medical Decision Making MDM Told the patient I told the patient that there likely is I told patient that there likely is that there likely is a piece of retained IUD. But again given that she is not have any fevers chills abdominal pain any vaginal bleeding any flank pain any changes in symptomatology there is no signs now of infection. She will be stable for outpatient management with cystoscopy with OB Gyne. Given by that there was no the no foreign body was able to be visualized. But she is stable for discharge he was in agreement above-stated plan. DX & DISP Disposition: Discharge Departure Impression: Primary Impression: IUD complication Condition: Stable Referrals: VIOLETTE YATES MD (PCP) JOSE GUADALUPE BAGLEY MD May 08, 2024 09:12
--- NOTE | 2024-05-08 09:14 | NUR ---
PATIENT REPORTS TO ED WITH C\O OF IUD DISLODGED FROM CERVIX. PATIENT BROUGHT IN IUD THAT WAS DISLODGED. PROVIDER SHOWN SAMPLE. PATIENT VERBALIZES VAGINAL SPOTTING\BLEEDING X3 WEEKS. PATIENT DENIES PELVIC PAIN.
== END 2024-05-08 09:24 | disposition home or self-care (01) ==
LOC: EDH 08:42
DX: T83.9XXA Unspecified complication of genitourinary prosthetic device, implant and graft, initial encounter (principal); Z88.1 Allergy status to other antibiotic agents; Z90.49 Acquired absence of other specified parts of digestive tract; Y69 Unspecified misadventure during surgical and medical care; Y92.89 Other specified places as the place of occurrence of the external cause
CPT/HCPCS: 99281

== ENCOUNTER → 2024-05-10 | Outpatient (CLI) | payer OTHER ==
--- NOTE | 2024-05-10 16:41 | HMCIMG ---
ABD 1VW HISTORY: No additional history given. COMPARISON: None FINDINGS: A frontal projection of the abdomen was obtained. A nonspecific bowel gas pattern is seen. Fecal material is seen in the colon. Degenerative changes of the thoracolumbar spine are noted. IMPRESSION: 1. A nonspecific bowel gas pattern is seen.
== END | disposition home or self-care (01) ==
LOC: RAH 10:16
PROVIDERS: ATTEND Internal Medicine Cardiovascular Disease
DX: T83.39XD Other mechanical complication of intrauterine contraceptive device, subsequent encounter (principal); M47.815 Spondylosis without myelopathy or radiculopathy, thoracolumbar region; X58.XXXD Exposure to other specified factors, subsequent encounter
CPT/HCPCS: 74018

== ENCOUNTER → 2024-07-12 | Outpatient (CLI) | payer OTHER ==
--- NOTE | 2024-07-12 09:28 | HMCIMG ---
Exam Type: US ABDOMINAL COMPLETE Clinical Information: ulcerative chronic pancolitis without complications Comparison: None Findings: The liver shows normal echogenicity is otherwise unremarkable. Doppler evaluation shows patent portal and hepatic veins. The gallbladder is surgically absent. No bile duct dilatation is noted. The common bile duct measures 5 mm. The right kidney measures 10.4 x 4.6 cm. The left kidney measures 9.5 x 6 .2 cm. The kidneys show no hydronephrosis or calculi, masses or other abnormalities. The pancreas is unremarkable. The spleen is unremarkable. The aorta and inferior vena cava show no significant abnormalities. IMPRESSION: Status post cholecystectomy. Otherwise unremarkable exam.
[2024-07-12 10:19] LABS: BASOPHILS # (AUTO) 0.04 K/uL (0.00-0.20); BASOPHILS % (AUTO) 0.5 % (0.0-5.0); EOSINOPHILS # (AUTO) 0.12 K/uL (0.00-0.70); EOSINOPHILS % (AUTO) 1.5 % (0.0-8.0); HEMATOCRIT 30.9 % (36-48); IMMATURE GRANULOCYTE ABSOLUTE 0.04 K/uL (0-1); LYMPHOCYTES # (AUTO) 1.3 K/uL (1.0-4.8); LYMPHOCYTES % (AUTO) 16.2 % (21.0-51.0); MEAN CORPUSCULAR HEMOGLOBIN 21.7 pg (27.0-33.0); MEAN CORPUSCULAR HGB CONC 28.8 g/dL (32.0-36.0); MEAN CORPUSCULAR VOLUME 75.2 fL (79-99); MONOCYTES # (AUTO) 0.5 K/uL (0.1-1.0); MONOCYTES % (AUTO) 5.7 % (3.0-13.0); NEUTROPHILS # (AUTO) 6.2 K/uL (1.8-7.7); NEUTROPHILS % (AUTO) 75.6 % (40.0-77.0); PLATELET COUNT (AUTO) 436 K/uL (130-400); RED BLOOD CELL COUNT(AUTO) 4.11 MIL/uL (4.00-5.50); RED CELL DISTRIBUTION WIDTH 22.3 % (11.0-15.5); WHITE BLOOD COUNT (AUTO) 8.2 K/uL (4.8-10.8)
[2024-07-12 11:00] LABS: ALANINE AMINOTRANSFERASE 25 U/L (12-78); ALBUMIN 3.5 g/dL (3.5-5.0); ASPARTATE AMINOTRANSFERASE 16 U/L (10-37); BILIRUBIN,TOTAL 0.2 mg/dL (0.2-1.0); CARBON DIOXIDE 27 mmol/L (21-32); CHLORIDE 104 mmol/L (101-111); CREATININE 0.7 mg/dL (0.5-1.0); GLOMERULAR FILTR. RATE CALC 104 mL/min (>90); GLUCOSE,RANDOM 97 mg/dL (70-105); POTASSIUM 4.5 mmol/L (3.5-5.1); SODIUM SERUM 137 mmol/L (136-145); TOTAL PROTEIN, SERUM 7.8 g/dL (6.0-8.3); UREA NITROGEN, BLOOD 9 mg/dL (7-18)
--- NOTE | 2024-07-12 11:14 | HMCIMG ---
BONE DENSITOMETRY: HISTORY: Other specified disorders of bone density and structure, other site Comparison: None FINDINGS: BMD measured at AP spine L1-L4 is 1.006 g/cm2 with a T-score of -0.4 Bone density is up to 10% below young normal. This patient is considered normal according to WHO criteria. Fracture risk is low. BMD measured at Left Femoral Neck is 0.845 g/cm2 with a T-score of 0.0 Bone density is up to 10% below young normal. This patient is considered normal according to WHO criteria. Fracture risk is low. BMD measured at Left Femoral Total is 0.947 g/cm2 with a T-score of 0.0 Bone density is up to 10% below young normal. This patient is considered normal according to WHO criteria. Fracture risk is low. IMPRESSION: Normal bone mineral density.
== END | disposition home or self-care (01) ==
LOC: RAH 07:47
PROVIDERS: ATTEND Internal Medicine
DX: K51.00 Ulcerative (chronic) pancolitis without complications (principal); M85.88 Other specified disorders of bone density and structure, other site; Z90.49 Acquired absence of other specified parts of digestive tract
CPT/HCPCS: 36415; 76700; 77080; 80053; 82306; 82607; 82746; 83993; 85025; 86140

== ENCOUNTER → 2024-09-12 | Outpatient (CLI) | payer OTHER ==
[~2024-09-12] MED LIST changes: +IOHEXOL-350 50ML VIAL IV ONE
--- NOTE | 2024-09-12 10:44 | HMCIMG ---
Exam Type: CT HEAD/BRAIN W/WO CONTRAST Clinical Information: HEADACHE Comparison: None CT Dose Index (CTDI): 57.33 mGy Dose Length Product (DLP): 956.79 total mGy-cm Findings: The examination is unremarkable. Singh-white matter junction is preserved. No intra or extra axial lesions or fluid collections are seen. Specifically, singh and white matter are normal in signal characteristics with normal caliber of ventricles and periventricular cisterns with no evidence of intra or or extra-axial hemorrhage, lacunar infarct, or major territorial infarct, mass, or other abnormality. There are no infarcts. There are no hemorrhages. Periventricular white matter locations are preserved. The orbital contents and structures of the posterior fossa are intact. After contrast administration, there is no abnormal enhancement. Impression: Normal CT of the head. This study was performed using dose reduction techniques to include automated exposure control and/or adjustment of the mA and/or kV according to patient size.
== END | disposition home or self-care (01) ==
LOC: RAH 10:05
PROVIDERS: ATTEND Internal Medicine Hematology & Oncology
DX: R50.9 Fever, unspecified (principal); D50.9 Iron deficiency anemia, unspecified
CPT/HCPCS: 70470; Q9967

== ENCOUNTER → 2024-09-19 | Outpatient (CLI) | payer OTHER ==
[~2024-09-19] MED LIST changes: -IOHEXOL-350 50ML VIAL IV ONE
[2024-09-19 12:12] LABS: BASOPHILS # (AUTO) 0.05 K/uL (0.00-0.20); BASOPHILS % (AUTO) 0.6 % (0.0-5.0); EOSINOPHILS # (AUTO) 0.24 K/uL (0.00-0.70); EOSINOPHILS % (AUTO) 3.1 % (0.0-8.0); HEMATOCRIT 37.3 % (36-48); IMMATURE GRANULOCYTE ABSOLUTE 0.02 K/uL (0-1); LYMPHOCYTES % (AUTO) 25.5 % (21.0-51.0); MEAN CORPUSCULAR HEMOGLOBIN 27.6 pg (27.0-33.0); MEAN CORPUSCULAR HGB CONC 31.6 g/dL (32.0-36.0); MEAN CORPUSCULAR VOLUME 87.4 fL (79-99); MONOCYTES # (AUTO) 0.8 K/uL (0.1-1.0); MONOCYTES % (AUTO) 9.8 % (3.0-13.0); NEUTROPHILS # (AUTO) 4.7 K/uL (1.8-7.7); NEUTROPHILS % (AUTO) 60.7 % (40.0-77.0); PLATELET COUNT (AUTO) 303 K/uL (130-400); RED BLOOD CELL COUNT(AUTO) 4.27 MIL/uL (4.00-5.50); RED CELL DISTRIBUTION WIDTH 21.2 % (11.0-15.5); WHITE BLOOD COUNT (AUTO) 7.8 K/uL (4.8-10.8)
[2024-09-19 12:40] LABS: ALBUMIN 3.5 g/dL (3.5-5.0); BILIRUBIN,TOTAL 0.3 mg/dL (0.2-1.0); CREATININE 0.8 mg/dL (0.5-1.0); POTASSIUM 4.2 mmol/L (3.5-5.1); TOTAL PROTEIN, SERUM 7.6 g/dL (6.0-8.3)
[2024-09-19 12:46] LABS: % IRON SATURATION 11.4 % (22-44)
== END | disposition home or self-care (01) ==
LOC: RAH 11:52
PROVIDERS: ATTEND Internal Medicine Hematology & Oncology
DX: E78.5 Hyperlipidemia, unspecified (principal); E55.9 Vitamin D deficiency, unspecified; I50.9 Heart failure, unspecified; D50.9 Iron deficiency anemia, unspecified; D75.839 Thrombocytosis, unspecified; K59.00 Constipation, unspecified; K51.90 Ulcerative colitis, unspecified, without complications; R23.3 Spontaneous ecchymoses; R00.2 Palpitations; R35.1 Nocturia; R68.2 Dry mouth, unspecified; R53.83 Other fatigue; R70.0 Elevated erythrocyte sedimentation rate; M25.50 Pain in unspecified joint; M85.80 Other specified disorders of bone density and structure, unspecified site; M54.50 Low back pain, unspecified; H93.19 Tinnitus, unspecified ear; H81.10 Benign paroxysmal vertigo, unspecified ear; M62.81 Muscle weakness (generalized); F41.9 Anxiety disorder, unspecified; F32.89 Other specified depressive episodes
CPT/HCPCS: 36415; 80053; 82728; 83540; 83550; 84466; 85025

== ENCOUNTER → 2024-11-19 | Outpatient (CLI) | payer OTHER ==
[2024-11-19 13:36] LABS: IMMATURE GRANULOCYTE ABSOLUTE 0.02 K/uL (0-1); NUCLEATED RED BLOOD CELLS 0.0 % (0.0-0.19); PLATELET COUNT (AUTO) 300 K/uL (130-400); RED BLOOD CELL COUNT(AUTO) 3.82 MIL/uL (4.00-5.50); RED CELL DISTRIBUTION WIDTH 16.0 % (11.0-15.5); WHITE BLOOD COUNT (AUTO) 7.7 K/uL (4.8-10.8)
[2024-11-19 13:52] LABS: % IRON SATURATION 3.7 % (22-44); IRON, SERUM 16.0 mcg/dL (50-170)
== END | disposition home or self-care (01) ==
LOC: RAH 13:12
PROVIDERS: ATTEND Internal Medicine
DX: R06.02 Shortness of breath (principal)
CPT/HCPCS: 36415; 82670; 82728; 83001; 83540; 83550; 85025; 93306

== ENCOUNTER 2024-12-13 13:52 | Emergency (ER) | payer OTHER ==
[~2024-12-13] VITALS: Ht 154.9 cm; Wt 65.8 kg
[2024-12-13 13:55] VITALS: BP 135/88; PULSE 97; RESP 16; TEMP 97.9; O2SAT 100
--- NOTE | 2024-12-13 14:04 | ERN ---
ED Note History of Present Illness Stated Complaint: HEADACHE Chief Complaint: Headache Time Seen by MD: 13:53 Dictation: PATIENT IS A 54-YEAR-OLD FEMALE COMING IN WITH MULTIPLE COMPLAINTS. FIRST COMPLAINT IS SHE SAID THIS AFTERNOON SHE STARTED FELL ON IT GOT SHE WANTED A BLACKOUT HAD A GENERALIZED HEADACHE/PRESSURE. SHE STATES SHE ALSO STATED THAT SHE THOUGHT SHE WAS GOING TO BLACK OUT HOWEVER SHE DID NOT BLACK OUT. ALSO SHE IS COMPLAINING OF LEFT EAR PAIN WITH TINNITUS SHE HAS HAD FOR SEVERAL MONTHS. FINALLY, SHE IS SCHEDULED FOR A CT OF HER HEART BY HER PERCUSSION TEACHER'S IN THE NEXT SEVERAL DAYS AND JUST RECENTLY HAD A HEART MONITOR FOR THREE DAYS. SHE HAS TAKEN NOTHING PRIOR TO ARRIVAL FOR PAIN, GAIT IS STEADY TO TRIAGE. NIH IS 0 IN TRIAGE. Allergies: Coded Allergies: metronidazole (Unverified Allergy, Unknown, 08/11/16) Home Meds Reported Medications Adalimumab (Humira) 40 Mg/0.4 Ml Syringekit, 40 MG SQ [id number] 04/06/23 Past Medical History Past Medical History: Other Additional Past Medical Hx: aflutter ? Surgical History: Cholecystectomy Surgical History Other: ULCERATIVE COLITIS Social History: Negative History: Not Applicable RN Note Reviewed/Agreed w/PFSH: Yes Review of System Dictation CONSTITUTIONAL: NEGATIVE EXCEPT FOR HPI NEAR SYNCOPAL HEAD/FACE: NEGATIVE EXCEPT FOR HPI EENT: NEGATIVE EXCEPT FOR HPI LEFT EAR PAIN/TINNITUS RESPIRATORY: NEGATIVE EXCEPT FOR HPI GASTROINTESTINAL/ABDOMINAL: NEGATIVE EXCEPT FOR HPI GENITOURINARY: NEGATIVE EXCEPT FOR HPI MUSCULOSKELETAL: NEGATIVE EXCEPT FOR HPI INTEGUMENTARY: NEGATIVE EXCEPT FOR HPI NEUROLOGICAL/PSYCH: NEGATIVE EXCEPT FOR HPI HEADACHE/HEAD PRESSURE. HEMATOLOGIC/LYMPHATIC: NEGATIVE EXCEPT FOR HPI ALL SYSTEMS NEGATIVE, EXCEPT NOTED ABOVE. 13 POINT REVIEW OF SYSTEMS ASSESSED AND ALL NEGATIVE EXCEPT FOR ABOVE. Initial Vital Sign VS Vital Signs Date Time Temp Pulse Resp B/P (MAP) Pulse Ox O2 Delivery O2 Flow Rate FiO2 12/13/24 13:53 100.0 97 16 135/88 100 Room Air 0 12/13/24 13:55 21 Physical Exam Dictation VITAL SIGNS REVIEWED GENERAL APPEARANCE: ALERT, ORIENTED X 3, MILD ACUTE DISTRESS, WELL DEVELOPED, NOURISHED. HEAD AND FACE: NON-TRAUMATIC. EYES: PERRL, PINK CONJUNCTIVAS, EYELID NO TRAUMA, ANTERIOR CHAMBER WITH ARCUS SENILIS. EARS: PINNAS INTACT AND NO SIGNS OF TRAUMA OR ERYTHEMA EAR CANALS CLEAR AND NO DISCHARGE TM NO ERYTHEMA NO MASTOID TENDERNESS BILATERALLY. NOSE: NO DISCHARGE, NO BLEEDING. OROPHARYNX: MOUTH NORMAL, TONGUE PINK, PHARYNX CLEAR,NO ERYTHEMA, TONSILS NO EXUDATES, NO ABSCESSES NOTED, MUCOUS MEMBRANE MOIST NECK: SUPPLE, NON-TENDER, NO THYROMEGALY, NO MASSES, NO JVD, NO BRUITS BREAST:DEFERRED CHEST:NO TENDERNESS, NO CREPITUS, NO PARADOXICAL MOVEMENT, NO RETRACTIONS LUNGS:CLEAR, WELL-VENTILATED, SYMMETRIC, NO RALES, NO WHEEZING, NO RHONCHI, NO STRIDOR, GOOD BREATH SOUNDS BILATERALLY HEART: REGULAR RATE, REGULAR RHYTHM, NO MURMUR, NO GALLOPS VASCULAR: NO PERIPHERAL EDEMA, ABDOMEN: SOFT, POSITIVE BOWEL SOUNDS, NONDISTENDED, NO GUARDING, NONTENDER, NO REBOUND, NO MASSES NO HEPATOMEGALY, NO SPLENOMEGALY, NO BARRETT'S SIGN, NO HERNIAS. RECTAL: DEFERRED GENITAL: DEFERRED NEUROLOGICAL: NORMAL SPEECH, MOTOR FUNCTION INTACT, SENSORY FUNCTION INTACT NIH IS 0 ON APPROACH IN TRIAGE. MUSCULOSKELETAL: NECK NONTENDER, FULL RANGE OF MOTION, BACK NONTENDER, FULL RANGE OF MOTION, EXTREMITIES: NONTENDER, FULL RANGE OF MOTION SKIN: COLOR PINK, DRY, NO TURGOR, NO RASH, NO LACERATIONS, NO ABRASIONS, NO CONTUSIONS. LYMPHATIC: DEFERRED Results (Laboratory/Radiology) Laboratory/Radiology Laboratory Tests Test 12/13/24 14:16 12/13/24 15:03 White Blood Count 7.7 K/uL (4.8-10.8) Red Blood Count 2.96 MIL/uL (4.00-5.50) L Hemoglobin 6.5 g/dL (12.0-16.0) *L Hematocrit 22.6 % (36-48) L Mean Corpuscular Volume 76.4 fL (79-99) L Mean Corpuscular Hemoglobin 22.0 pg (27.0-33.0) L Mean Corpuscular Hemoglobin Concent 28.8 g/dL (32.0-36.0) L Red Cell Distribution Width 17.0 % (11.0-15.5) H Platelet Count 293 K/uL (130-400) Mean Platelet Volume 9.4 fL (7.5-10.5) Immature Granulocyte % (Auto) 0.3 % (0-1) Neutrophils (%) (Auto) 75.9 % (40.0-77.0) Lymphocytes (%) (Auto) 14.7 % (21.0-51.0) L Monocytes (%) (Auto) 6.6 % (3.0-13.0) Eosinophils (%) (Auto) 1.9 % (0.0-8.0) Basophils (%) (Auto) 0.6 % (0.0-5.0) Neutrophils # (Auto) 5.9 K/uL (1.8-7.7) Lymphocytes # (Auto) 1.1 K/uL (1.0-4.8) Monocytes # (Auto) 0.5 K/uL (0.1-1.0) Eosinophils # (Auto) 0.15 K/uL (0.00-0.70) Basophils # (Auto) 0.05 K/uL (0.00-0.20) Absolute Immature Granulocyte (auto 0.02 K/uL (0-1) Nucleated Red Blood Cells 0.0 % (0.0-0.19) Red Blood Cell Morphology See comments Sodium Level 137 mmol/L (136-145) Potassium Level 3.6 mmol/L (3.5-5.1) Chloride Level 103 mmol/L (101-111) Carbon Dioxide Level 25 mmol/L (21-32) Blood Urea Nitrogen 11 mg/dL (7-18) Creatinine 0.6 mg/dL (0.5-1.0) Glomerular Filtration Rate Calc 108 mL/min (>90) Random Glucose 107 mg/dL (70-105) H Total Calcium 8.4 mg/dL (8.5-10.1) L Magnesium Level 2.10 mg/dL (1.80-2.40) Troponin I High Sensitivity < 4 ng/L (4-50) L Urine Color LIGHT-YELLOW (YELLOW) Urine Appearance CLEAR (CLEAR) Urine pH 5.5 (5.0-8.0) Urine Specific [place] 1.012 (1.001-1.031) Urine Protein NEGATIVE mg/dL (NEGATIVE) Urine Glucose (UA) NEGATIVE mg/dL (NEGATIVE) Urine Ketones NEGATIVE mg/dL (NEGATIVE) Urine Occult Blood NEGATIVE (NEGATIVE) Urine Nitrate NEGATIVE (NEGATIVE) Urine Bilirubin NEGATIVE mg/dL (NEGATIVE) Urine Urobilinogen 0.2 mg/dL (0.2-1.0) Urine Leukocyte Esterase NEGATIVE Ngiel/uL Urine RBC 2-5 /HPF (0-1) H Urine WBC 2-5 /HPF (0-1) H Urine Squamous Epithelial Cells RARE /HPF (0-2) Urine Bacteria None /HPF (None Seen) Labs Reviewed?: Yes EKG: (+) NSR EKG Comment: EKG NORMAL SINUS RHYTHM/HEART RATE 84/AXIS NORMAL/NO ECTOPY ED Course ED Course Orders Procedure Category Date Status Time Acetaminophen 500mg PHA 12/13/24 Complete Tab (Tylenol 500mg T 14:00 Cbc With Differential LAB 12/13/24 Complete 13:59 12 Lead Ekg Tracing- EKG 12/13/24 Complete Technical 13:59 Magnesium LAB 12/13/24 Complete 13:59 Troponin I High LAB 12/13/24 Complete Sensitivity 13:59 Basic Metabolic Panel LAB 12/13/24 Complete 13:59 Type And Screen BBK 12/13/24 In Process 14:30 Rbc-Active Bleeding BBK 12/13/24 In Process 14:38 0.9%Nacl 1000ml (Ns PHA 12/13/24 Complete 1000ml) 15:00 Urinalysis Profile LAB 12/13/24 Complete 15:07 Rbc-Active Bleeding BBK 12/13/24 In Process 15:27 Current Medications Medications (Trade) Dose Ordered Sig/Jessica Route PRN Reason Start Time Stop Time Status Last Admin Dose Admin Acetaminophen (TYLenol 500MG TAB) 1,000 mg ONCE ONCE PO 12/13/24 14:00 12/13/24 14:02 DC 12/13/24 15:10 Sodium Chloride 1,000 ml @ 0 mls/hr ONCE ONCE IV 12/13/24 15:00 12/13/24 15:01 DC 12/13/24 15:09 Vital Signs Date Time Temp Pulse Resp B/P (MAP) Pulse Ox O2 Delivery O2 Flow Rate FiO2 12/13/24 13:55 97.9 97 16 135/88 100 Room Air* 0 21 12/13/24 13:53 100.0 97 16 135/88 100 Room Air 0 1440/SPOKE WITH PATIENT AT LENGTH REGARDING HER CLINICAL FINDINGS INCLUDING HEMOGLOBIN OF 6.5. SHE STATES SHE HAS BEEN SEEING DR. ROXI CHAUDHARI FOR DYSFUNCTIONAL UTERINE BLEEDING, HOWEVER HAS HAD NO BLEEDING IN THE LAST 7-10 DAYS. SHE STATES SHE HAS BEEN ON CONTROL TO HELP REGULATE HER BLEEDING. SHE IS AWARE SHE WILL BE ADMITTED TO THE HOSPITAL AND WE WILL REQUIRE BLOOD. 1525/SPOKE WITH DR. ROXI CHAUDHARI SALES REPRESENTATIVE PRINTING PAPER REGARDING PATIENT'S HEMOGLOBIN. SHE STATES SHE JUST NOT COME TO THIS HOSPITAL ANYMORE BECAUSE WE DO NOT HAVE AN SALES REPRESENTATIVE PRINTING PAPER FLOOR. SHE SAID TO EITHER TRANSFER TO A HIGHER LEVEL OF CARE TRANSFUSED AND DISCHARGED HOME AND SHE COULD FOLLOW UP IN HER OFFICE SOON. ADDITIONALLY, SPOKE WITH , he did not want to admit patient to the hospital for blood transfusion due to no reconciliation clerk support. Spoke with patient at length with her at bedside she is aware that I we will transfuse blood and discharge her to follow up with Dr. Chaudhari in the next 1-2 days for management. Additi onally I gave her explicit instructions to find out what hospital Dr. Chaudhari would like her to be seen at if she has future problems with vaginal bleeding.1 1740/PATIENT RECEIVED 1 UNIT PACKED RED BLOOD CELLS. SHE REMAINS HEMODYNAMICALLY STABLE DISCUSSED SITUATION WITH HER AND HER AT BEDSIDE, SHE IS ACUTELY AWARE TO FOLLOW UP WITH DR. ROXI CHAUDHARI IN THE NEXT 1-2 DAYS FOR MANAGEMENT OF HER DYSFUNCTIONAL UTERINE BLEEDING. ALL QUESTIONS ANSWERED. Medical Decision Making MDM MDM: DIFFERENTIAL DIAGNOSIS: ACS/AMI/ELECTROLYTE IMBALANCE/DEHYDRATION/GENERALIZED HEADACHE/UTI RATIONALE: TESTS CONSIDERED AND ORDERED SECONDARY TO SHARED DECISION MAKING INCLUDE: LABS, ECG AND RADIOLOGY PREVIOUS OUTSIDE RECORDS REVIEWED: OLD ER VISITS. RISK OF COMPLICATION AND/OR MORBIDITY OR MORTALITY OF PATIENT MANAGEMENT: NONE MEDICATIONS-PER MEDICATION RECONCILIATION NEED FOR HOSPITALIZATION: PATIENT DOES MEET CRITERIA FOR HOSPITALIZATION. PATIENT WILL NEED TO BE ADMITTED FOR BLOOD TRANSFUSION AND STABILIZATION. NO ACTIVE BLEEDING AT THIS TIME. NEED FOR EMERGENCY MAJOR/MINOR SURGERY: NO THERE ARE NO SOCIAL CONCERNS WITH THIS PATIENT. PRESCRIPTION DRUG MANAGEMENT PRESCRIPTIONS WILL INCLUDE SYMPTOMATIC CARE PATIENT'S PRIOR EXTERNAL MEDICAL RECORDS FROM OTHER ER VISITS WERE REVIEWED BY ME INDICATED. PRIOR TESTING AND RESULTS FROM PREVIOUS VISITS WERE REVIEWED. PRIOR TESTS WERE TAKEN INTO ACCOUNT WITH MEDICAL DECISION MAKING AND RESOURCE UTILIZATION, INDEPENDENT HISTORIAN/HISTORIANS WERE USED TO OBTAIN COMPLETE MEDICAL HISTORY. I INDEPENDENTLY INTERPRETED THE TEST THAT WERE PERFORMED, RESULTS WERE REVIEWED BY ME AND CONSIDERED FINDINGS ON RADIOLOGY IF ORDERED. MEDICAL MANAGEMENT AND EXAMINATION INTERPRETATION DISCUSSIONS WERE HAD BY ME WITH OTHER QUALIFIED HEALTHCARE PROFESSIONALS INDICATED FOR THE PATIENT'S CARE. DX & DISP Disposition: Discharge Decision to Admit Time: 14:43 Departure Impression: Primary Impression: Acute blood loss anemia Additional Impressions: Generalized headache, History of dysfunctional uterine bleeding, Near syncope Condition: Stable Additional Instructions: FOLLOW-UP WITH PRIMARY CARE PROVIDER IN 1 TO 2 DAYS. TAKE MEDICATIONS DIRECTED HERE IN THE EMERGENCY ROOM. OKAY TO CONTINUE HOME MEDICATIONS UNLESS OTHERWISE DISCUSSED DURING YOUR VISIT IN THE EMERGENCY ROOM TODAY. RETURN TO YOUR NEAREST EMERGENCY ROOM IF SYMPTOMS WORSEN OR IF THERE IS NO IMPROVEMENT. CALL 911 IF YOU NEED IMMEDIATE ASSISTANCE. TAKE TYLENOL OR MOTRIN [id number] NEEDED AND IF NO CONTRAINDICATIONS ARE PRESENT. INCREASE ORAL HYDRATION. A WOUND CULTURE OR URINE CULTURE WAS ORDERED HERE IN THE EMERGENCY ROOM DEPARTMENT PLEASE FOLLOW-UP WITH PRIMARY CARE PROVIDER AND ADVISE THEM TO GET REPEAT PORTS FROM OUR FACILITY. IF YOU HAD ANY RANDY WRAP/SPLINTS THAT WERE APPLIED HERE, PLEASE DO NOT REMOVE THEM UNTIL YOU SEE YOUR PRIMARY CARE OR SPECIALTY. FOLLOW UP WITH THE YOUR SALES REPRESENTATIVE PRINTING PAPER DOCTOR, DR. ROXI CHAUDHARI IN THE NEXT 1-2 DAYS WIT HOUT FAIL FOR MANAGEMENT. INCREASE YOUR FLUID INTAKE. Referrals: VIOLETTE YATES MD (PCP) Time of Disposition: 14:43 I have reviewed the case, and I agree with, Diagnosis and Plan LUCIO DE LA CRUZ NP Dec 13, 2024 14:04
--- NOTE | 2024-12-13 14:05 | EKG ---
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
[2024-12-13 14:23] LABS: IMMATURE GRANULOCYTE ABSOLUTE 0.02 K/uL (0-1); NUCLEATED RED BLOOD CELLS 0.0 % (0.0-0.19); PLATELET COUNT (AUTO) 293 K/uL (130-400); RED BLOOD CELL COUNT(AUTO) 2.96 MIL/uL (4.00-5.50); RED CELL DISTRIBUTION WIDTH 17.0 % (11.0-15.5); WHITE BLOOD COUNT (AUTO) 7.7 K/uL (4.8-10.8)
[2024-12-13 14:31] LABS: CREATININE 0.6 mg/dL (0.5-1.0); GLOMERULAR FILTR. RATE CALC 108.0 mL/min (>90); GLUCOSE,RANDOM 107.0 mg/dL (70-105); SODIUM SERUM 137.0 mmol/L (136-145); UREA NITROGEN, BLOOD 11.0 mg/dL (7-18)
--- NOTE | 2024-12-13 14:39 | NUR ---
TRANSFERED ARE TO [facility] AT THIS TIME
[2024-12-13] MEDS: 0.9%NACL 1000ML 1,000 ML IV ONE (15:09)
[2024-12-13 15:15] LABS: APPEARANCE,URINE CLEAR (CLEAR); GLUCOSE, URINE (UA) NEGATIVE (NEGATIVE); LEUKOCYTE ESTERASE ,URINE NEGATIVE Leu/uL (NEGATIVE); NITRATE,URINE NEGATIVE (NEGATIVE); OCCULT BLOOD,URINE NEGATIVE (NEGATIVE)
[2024-12-13 15:41] LABS: ADD UA MICROSCOPIC YES; SQUAMOUS EPITHELIAL CELL,UR RARE /HPF (0-2)
== END 2024-12-13 18:38 | disposition home or self-care (01) ==
LOC: EDH 13:52
DX: D62 Acute posthemorrhagic anemia (principal); R51.9 Headache, unspecified; Z88.1 Allergy status to other antibiotic agents; Z90.49 Acquired absence of other specified parts of digestive tract
CPT/HCPCS: 99285; 36430; 83735; 84484; 80048; 85025; 86850; 86900; 86901; 86923; 81001; 36415; 93005; P9016

== ENCOUNTER 2025-01-10 20:39 | Emergency (ER) | payer OTHER ==
[~2025-01-10] VITALS: Ht 154.9 cm; Wt 65.3 kg
--- NOTE | 2025-01-10 20:58 | ERN ---
General Chief Complaint: Vaginal Problems/Bleeding Stated Complaint: C/O VAGINAL BLEEDING X 15 DAYS W/NEAR SYNCOPY Time Seen by MD: 20:44 Time Seen by Midlevel: 20:50 Source: patient History of Present Illness Initial Comments The patient is a 54-year-old female with a past medical history of heavy menstrual cycle presents to the emergency department for evaluation of vaginal bleeding that has been ongoing for 15 days. She reports a similar episode back in November where she was found to have hemoglobin of 6 and needed a blood transfusion. She does have an extensive history of dysfunctional uterine bleeding. She is followed by OBGYN Dr. Chaudhari and is scheduled for hysterectomy later this month. Today she reports feeling increased fatigue so she decided to report to the ER for further evaluation Allergies: Coded Allergies: metronidazole (Unverified Allergy, Unknown, 08/11/16) Home Meds Reported Medications Adalimumab (Humira) 40 Mg/0.4 Ml Syringekit, 40 MG SQ [id number] 04/06/23 Past Medical History Past Medical History: Anemia Medical History Other: aflutter ? Past Surgical History: Cholecystectomy Surgical History Other: ULCERATIVE COLITIS Social History Social History: Negative Female( History) History: Not Applicable LMP: Dec 13, 2024 ROS Dictation CONSTITUTIONAL: Negative except for HPI HEAD/FACE: Negative except for HPI EENT: Negative except for HPI RESPIRATORY: Negative except for HPI GASTROINTESTINAL/ABDOMINAL: Negative except for HPI GENITOURINARY: Negative except for HPI MUSCULOSKELETAL: Negative except for HPI INTEGUMENTARY: Negative except for HPI NEUROLOGICAL/PSYCH: Negative except for HPI HEMATOLOGIC/LYMPHATIC: Negative except for HPI All Systems Negative, Except as noted above. 13 point review of systems assessed and all negative except for above. Physical Exam Physical Exam Dictation Vital Signs reviewed General Appearance: Alert, oriented x 3, no acute distress, well developed, nourished. Head and Face: non-traumatic. Eyes: PERRL, pink conjunctivas, eyelid no trauma, anterior chamber with arcus senilis. Ears: Pinnas intact and no signs of trauma or erythema ear canals clear and no discharge TM no erythema Nose: No discharge, no bleeding. Oropharynx: Mouth normal, tongue pink, pharynx clear,no erythema, tonsils no exudates, no abscesses noted, mucous membrane moist Neck: Supple, non-tender, no thyromegaly, no masses, no JVD, no bruits Breast:Deferred Chest:No tenderness, no crepitus, no paradoxical movement, no retractions Lungs:Clear, well-ventilated, symmetric, no rales, no wheezing, no rhonchi, no stridor, good breath sounds bilaterally Heart: Regular rate, regular rhythm, no murmur, no gallops Vascular: no peripheral edema, Abdomen: Soft, positive bowel sounds, nondistended, no guarding, nontender, no rebound, no masses no hepatomegaly, no splenomegaly, no Portillo's s ign, no hernias. Rectal: Deferred Genital: Deferred Neurological: Normal speech, motor function intact, sensory function intact Musculoskeletal: Neck nontender, full range of motion, back nontender, full range of motion, Extremities: nontender, full range of motion Skin: Color pink, dry, no turgor, no rash, no lacerations, no abrasions, no contusions. Lymphatic: Deferred Results Laboratory and Microbiology Lab and Micro Result Laboratory Tests Test 01/10/25 21:18 White Blood Count 9.3 K/uL (4.8-10.8) Red Blood Count 3.62 MIL/uL (4.00-5.50) L Hemoglobin 9.8 g/dL (12.0-16.0) L Hematocrit 31.9 % (36-48) L Mean Corpuscular Volume 88.1 fL (79-99) Mean Corpuscular Hemoglobin 27.1 pg (27.0-33.0) Mean Corpuscular Hemoglobin Concent 30.7 g/dL (32.0-36.0) L Red Cell Distribution Width % (11.0-15.5) Platelet Count 311 K/uL (130-400) Mean Platelet Volume 8.9 fL (7.5-10.5) Immature Granulocyte % (Auto) 0.2 % (0-1) Neutrophils (%) (Auto) 69.0 % (40.0-77.0) Lymphocytes (%) (Auto) 20.4 % (21.0-51.0) L Monocytes (%) (Auto) 6.5 % (3.0-13.0) Eosinophils (%) (Auto) 3.3 % (0.0-8.0) Basophils (%) (Auto) 0.6 % (0.0-5.0) Neutrophils # (Auto) 6.4 K/uL (1.8-7.7) Lymphocytes # (Auto) 1.9 K/uL (1.0-4.8) Monocytes # (Auto) 0.6 K/uL (0.1-1.0) Eosinophils # (Auto) 0.31 K/uL (0.00-0.70) Basophils # (Auto) 0.06 K/uL (0.00-0.20) Absolute Immature Granulocyte (auto 0.02 K/uL (0-1) Nucleated Red Blood Cells 0.0 % (0.0-0.19) Red Blood Cell Morphology See comments Prothrombin Time 10.1 SEC (9.6-11.6) Prothromb Time International Ratio 0.95 (0.85-1.15) Activated Partial Thromboplast Time 23.3 SEC (26.3-35.5) L Sodium Level 135 mmol/L (136-145) L Potassium Level 3.9 mmol/L (3.5-5.1) Chloride Level 103 mmol/L (101-111) Carbon Dioxide Level 26 mmol/L (21-32) Blood Urea Nitrogen 13 mg/dL (7-18) Creatinine 0.7 mg/dL (0.5-1.0) Glomerular Filtration Rate Calc 104 mL/min (>90) Random Glucose 95 mg/dL (70-105) Total Calcium 8.2 mg/dL (8.5-10.1) L Magnesium Level 1.90 mg/dL (1.80-2.40) MDM 54-year-old with a chronic vaginal bleeding comes to the ER tubing checkup . -chronic vaginal bleeding H&H Patient is hemodynamically stable. She is scheduled for surgical procedure for hysterectomy in 2 weeks Our recommended the patient to follow up with her OBGYN There is no plan for blood transfusion. ED Course Orders Procedure Category Date Status Time 12 Lead Ekg Tracing- EKG 01/10/25 Logged Technical 20:51 Cbc With Differential LAB 01/10/25 Complete 20:51 Basic Metabolic Panel LAB 01/10/25 Complete 20:51 Magnesium LAB 01/10/25 Complete 20:51 Pt And Ptt LAB 01/10/25 Complete 20:51 Type And Screen BBK 01/10/25 In Process 20:51 Urinalysis Profile LAB 9/11/25 Logged 20:51 Vital Signs Date Time Temp Pulse Resp B/P (MAP) Pulse Ox O2 Delivery O2 Flow Rate FiO2 01/10/25 21:11 98.4 88 16 145/66 99 Room Air* 0 21 01/10/25 20:43 98.1 74 20 148/70 100 Room Air DX & DISP Disposition: Discharge Departure Impression: Primary Impression: Vaginal bleeding Additional Impression: Anemia due to blood loss, chronic Condition: Stable Additional Instructions: RETURN TO ER FOR ANY ACUTE OR WORSENING SYMPTOMS. FOLLOW-UP IN 1-2 DAYS WITH PRIMARY PROVIDER FOR RECHECK OF TODAY'S SYMPTOMS. Referrals: VIOLETTE YATES MD (PCP) Time of Disposition: 21:58 MARITZA RILEY Jan 10, 2025 20:58 MARY ANN ZURITA MD Jan 10, 2025 21:59
[2025-01-10 21:11] VITALS: BP 145/66; PULSE 88; RESP 16; TEMP 98.5; O2SAT 99
[2025-01-10 21:23] LABS: IMMATURE GRANULOCYTE ABSOLUTE 0.02 K/uL (0-1); NUCLEATED RED BLOOD CELLS 0.0 % (0.0-0.19); PLATELET COUNT (AUTO) 311 K/uL (130-400); RED BLOOD CELL COUNT(AUTO) 3.62 MIL/uL (4.00-5.50); WHITE BLOOD COUNT (AUTO) 9.3 K/uL (4.8-10.8)
[2025-01-10 21:33] LABS: CREATININE 0.7 mg/dL (0.5-1.0); GLOMERULAR FILTR. RATE CALC 104.0 mL/min (>90); GLUCOSE,RANDOM 95.0 mg/dL (70-105); SODIUM SERUM 135.0 mmol/L (136-145); UREA NITROGEN, BLOOD 13.0 mg/dL (7-18)
[2025-01-10 21:34] LABS: INR 0.95 (0.85-1.15)
--- NOTE | 2025-01-11 03:00 | EKG ---
[facility] Test Date: 2025-01-10 Test Time: 21:01:22 Pat Name: GODFREYVALENTINO BREWERZA Department: [facility] Room: Gender: F Reimbursement Analyst: [id number] : 1970 Requested By: MARITZA RILEY Order Number: [id number] Reading MD: Jose Vo Measurements Intervals [place] Rate: 64 P: 22 CO: 132 QRS: 2 QRSD: 74 T: 10 QT: 363 QTc: 374 Interpretive Statements Sinus rhythm Compared to ECG 12/13/2024 14:02:03 No significant changes Electronically Signed On 01-11-2025 13:41:20 CDT by Jose Vo Please click the below link to view image of tracing.
== END 2025-01-10 22:20 | disposition home or self-care (01) ==
LOC: EDH 20:39
DX: N93.9 Abnormal uterine and vaginal bleeding, unspecified (principal); D50.0 Iron deficiency anemia secondary to blood loss (chronic); Z88.1 Allergy status to other antibiotic agents; Z90.49 Acquired absence of other specified parts of digestive tract
CPT/HCPCS: 36415; 80048; 83735; 85025; 85610; 85730; 86850; 86900; 86901; 93005; 99284

== ENCOUNTER 2025-01-14 18:06 | Emergency (ER) | payer OTHER ==
[~2025-01-14] VITALS: Ht 154.9 cm; Wt 63.5 kg
--- NOTE | 2025-01-14 18:11 | ERN ---
ED Note History of Present Illness Stated Complaint: PALPITATIONS, VAGINAL BLEEDIN Chief Complaint: Palpitations Time Seen by MD: 18:08 Dictation: PATIENT IS A 54-YEAR-OLD FEMALE COMING IN WITH DYSFUNCTIONAL UTERINE BLEEDING AND CONCERNED ABOUT ANEMIA AND HAVING PALPITATIONS. SHE IS SCHEDULED NEXT WEEK FOR A TOTAL ABDOMINAL HYSTERECTOMY BY DR. ROXI SHAW/SERVICE TRAINER. SHE HAS BEEN TO THE EMERGENCY ROOM MULTIPLE TIMES FOR THE SAME COMPLAINT. Allergies: Coded Allergies: metronidazole (Unverified Allergy, Unknown, 08/11/16) Home Meds Reported Medications Adalimumab (Humira) 40 Mg/0.4 Ml Syringekit, 40 MG SQ [id number] 04/06/23 Past Medical History Past Medical History: Anemia Additional Past Medical Hx: aflutter ? Surgical History: Cholecystectomy Surgical History Other: ULCERATIVE COLITIS Social History: Negative History: Not Applicable RN Note Reviewed/Agreed w/PFSH: Yes Review of System Dictation CONSTITUTIONAL: NEGATIVE EXCEPT FOR HPI HEAD/FACE: NEGATIVE EXCEPT FOR HPI EENT: NEGATIVE EXCEPT FOR HPI RESPIRATORY: NEGATIVE EXCEPT FOR HPI PALPITATIONS GASTROINTESTINAL/ABDOMINAL: NEGATIVE EXCEPT FOR HPI GENITOURINARY: NEGATIVE EXCEPT FOR HPI MUSCULOSKELETAL: NEGATIVE EXCEPT FOR HPI INTEGUMENTARY: NEGATIVE EXCEPT FOR HPI NEUROLOGICAL/PSYCH: NEGATIVE EXCEPT FOR HPI HEMATOLOGIC/LYMPHATIC: NEGATIVE EXCEPT FOR HPI ALL SYSTEMS NEGATIVE, EXCEPT NOTED ABOVE. 13 POINT REVIEW OF SYSTEMS ASSESSED AND ALL NEGATIVE EXCEPT FOR ABOVE. Initial Vital Sign VS Vital Signs Date Time Temp Pulse Resp B/P (MAP) Pulse Ox O2 Delivery O2 Flow Rate FiO2 01/14/25 18:07 98.8 99 16 146/80 100 Room Air 0 01/14/25 18:32 21 Physical Exam Dictation VITAL SIGNS REVIEWED GENERAL APPEARANCE: ALERT, ORIENTED X 3, NO ACUTE DISTRESS, WELL DEVELOPED, NOURISHED. HEAD AND FACE: NON-TRAUMATIC. EYES: PERRL, PINK CONJUNCTIVAS, EYELID NO TRAUMA, ANTERIOR CHAMBER WITH ARCUS SENILIS. EARS: PINNAS INTACT AND NO SIGNS OF TRAUMA OR ERYTHEMA EAR CANALS CLEAR AND NO DISCHARGE TM NO ERYTHEMA NOSE: NO DISCHARGE, NO BLEEDING. OROPHARYNX: MOUTH NORMAL, TONGUE PINK, PHARYNX CLEAR,NO ERYTHEMA, TONSILS NO EXUDATES, NO ABSCESSES NOTED, MUCOUS MEMBRANE MOIST NECK: SUPPLE, NON-TENDER, NO THYROMEGALY, NO MASSES, NO JVD, NO BRUITS BREAST:DEFERRED CHEST:NO TENDERNESS, NO CREPITUS, NO PARADOXICAL MOVEMENT, NO RETRACTIONS LUNGS:CLEAR, WELL-VENTILATED, SYMMETRIC, NO RALES, NO WHEEZING, NO RHONCHI, NO STRIDOR, GOOD BREATH SOUNDS BILATERALLY HEART: REGULAR RATE, REGULAR RHYTHM, NO MURMUR, NO GALLOPS VASCULAR: NO PERIPHERAL EDEMA, ABDOMEN: SOFT, POSITIVE BOWEL SOUNDS, NONDISTENDED, NO GUARDING, NONTENDER, NO REBOUND, NO MASSES NO HEPATOMEGALY, NO SPLENOMEGALY, NO BARRETT'S SIGN, NO HERNIAS. RECTAL: DEFERRED GENITAL: DEFERRED NEUROLOGICAL: NORMAL SPEECH, MOTOR FUNCTION INTACT, SENSORY FUNCTION INTACT MUSCULOSKELETAL: NECK NONTENDER, FULL RANGE OF MOTION, BACK NONTENDER, FULL RANGE OF MOTION, EXTREMITIES: NONTENDER, FULL RANGE OF MOTION SKIN: COLOR PINK, DRY, NO TURGOR, NO RASH, NO LACERATIONS, NO ABRASIONS, NO CONTUSIONS. LYMPHATIC: DEFERRED Results (Laboratory/Radiology) Laboratory/Radiology Laboratory Tests Test 01/14/25 18:37 White Blood Count 8.4 K/uL (4.8-10.8) Red Blood Count 3.41 MIL/uL (4.00-5.50) L Hemoglobin 9.4 g/dL (12.0-16.0) L Hematocrit 30.5 % (36-48) L Mean Corpuscular Volume 89.4 fL (79-99) Mean Corpuscular Hemoglobin 27.6 pg (27.0-33.0) Mean Corpuscular Hemoglobin Concent 30.8 g/dL (32.0-36.0) L Red Cell Distribution Width 26.5 % (11.0-15.5) H Platelet Count 264 K/uL (130-400) Mean Platelet Volume 9.6 fL (7.5-10.5) Immature Granulocyte % (Auto) 0.4 % (0-1) Neutrophils (%) (Auto) 72.2 % (40.0-77.0) Lymphocytes (%) (Auto) 16.6 % (21.0-51.0) L Monocytes (%) (Auto) 7.2 % (3.0-13.0) Eosinophils (%) (Auto) 3.0 % (0.0-8.0) Basophils (%) (Auto) 0.6 % (0.0-5.0) Neutrophils # (Auto) 6.1 K/uL (1.8-7.7) Lymphocytes # (Auto) 1.4 K/uL (1.0-4.8) Monocytes # (Auto) 0.6 K/uL (0.1-1.0) Eosinophils # (Auto) 0.25 K/uL (0.00-0.70) Basophils # (Auto) 0.05 K/uL (0.00-0.20) Absolute Immature Granulocyte (auto 0.03 K/uL (0-1) Nucleated Red Blood Cells 0.0 % (0.0-0.19) Sodium Level 135 mmol/L (136-145) L Potassium Level 3.4 mmol/L (3.5-5.1) L Chloride Level 102 mmol/L (101-111) Carbon Dioxide Level 27 mmol/L (21-32) Blood Urea Nitrogen 8 mg/dL (7-18) Creatinine 0.7 mg/dL (0.5-1.0) Glomerular Filtration Rate Calc 104 mL/min (>90) Random Glucose 83 mg/dL (70-105) Total Calcium 8.6 mg/dL (8.5-10.1) Labs Reviewed?: Yes ED Course ED Course Orders Procedure Category Date Status Time Cbc With Differential LAB 01/14/25 Complete 18:09 Basic Metabolic Panel LAB 01/14/25 Complete 18:09 Vital Signs Date Time Temp Pulse Resp B/P (MAP) Pulse Ox O2 Delivery O2 Flow Rate FiO2 01/14/25 18:32 97.9 86 17 142/78 100 Room Air* 0 21 01/14/25 18:07 98.8 99 16 146/80 100 Room Air 0 1900/HEMOGLOBIN IS 9.4. LAST VISIT THE EMERGENCY ROOM ON 01/10 IT WAS 9.8. PATIENT NOT TRANSFUSED BLOOD THIS TIME. POTASSIUM IS 3.4 WE WILL BE REPLACED PATIENT TOLD TO FOLLOW BACK UP WITH DR. ROXI SHAW Medical Decision Making MDM MDM: DIFFERENTIAL DIAGNOSIS: ELECTROLYTE IMBALANCE/DEHYDRATION/ANEMIA/ RATIONALE: TESTS CONSIDERED AND ORDERED SECONDARY TO SHARED DECISION MAKING INCLUDE: LABS PREVIOUS OUTSIDE RECORDS REVIEWED: OLD ER VISITS. RISK OF COMPLICATION AND/OR MORBIDITY OR MORTALITY OF PATIENT MANAGEMENT: NONE MEDICATIONS-PER MEDICATION RECONCILIATION NEED FOR HOSPITALIZATION: PATIENT DOES NOT MEET CRITERIA FOR HOSPITALIZATION. NONE NEED FOR EMERGENCY MAJOR/MINOR SURGERY: NO THERE ARE NO SOCIAL CONCERNS WITH THIS PATIENT. PRESCRIPTION DRUG MANAGEMENT NONE PRESCRIPTIONS WILL INCLUDE SYMPTOMATIC CARE PATIENT'S PRIOR EXTERNAL MEDICAL RECORDS FROM OTHER ER VISITS WERE REVIEWED BY ME INDICATED. PRIOR TESTING AND RESULTS FROM PREVIOUS VISITS WERE REVIEWED. PRIOR TESTS WERE TAKEN INTO ACCOUNT WITH MEDICAL DECISION MAKING AND RESOURCE UTILIZATION, INDEPENDENT HISTORIAN/HISTORIANS WERE USED TO OBTAIN COMPLETE MEDICAL HISTORY. I INDEPENDENTLY INTERPRETED THE TEST THAT WERE PERFORMED, RESULTS WERE REVIEWED BY ME AND CONSIDERED FINDINGS ON RADIOLOGY IF ORDERED. MEDICAL MANAGEMENT AND EXAMINATION INTERPRETATION DISCUSSIONS WERE HAD BY ME WITH OTHER QUALIFIED HEALTHCARE PROFESSIONALS INDICATED FOR THE PATIENT'S CARE. DX & DISP Disposition: Discharge Departure Impression: Primary Impression: Anemia due to blood loss, chronic Additional Impressions: History of dysfunctional uterine bleeding, Hypokalemia Condition: Stable Additional Instructions: FOLLOW-UP WITH PRIMARY CARE PROVIDER IN 1 TO 2 DAYS. TAKE MEDICATIONS DIRECTED HERE IN THE EMERGENCY ROOM. OKAY TO CONTINUE HOME MEDICATIONS UNLESS OTHERWISE DISCUSSED DURING YOUR VISIT IN THE EMERGENCY ROOM TODAY. RETURN TO YOUR NEAREST EMERGENCY ROOM IF SYMPTOMS WORSEN OR IF THERE IS NO IMPROVEMENT. CALL 911 IF YOU NEED IMMEDIATE ASSISTANCE. TAKE TYLENOL OR MOTRIN [id number] NEEDED AND IF NO CONTRAINDICATIONS ARE PRESENT. INCREASE ORAL HYDRATION. A WOUND CULTURE OR URINE CULTURE WAS ORDERED HERE IN THE EMERGENCY ROOM DEPARTMENT PLEASE FOLLOW-UP WITH PRIMARY CARE PROVIDER AND ADVISE THEM TO GET REPEAT PORTS FROM OUR FACILITY. IF YOU HAD ANY RANDY WRAP/SPLINTS THAT WERE APPLIED HERE, PLEASE DO NOT REMOVE THEM UNTIL YOU SEE YOUR PRIMARY CARE OR SPECIALTY. DIET AND ACTIVITY TOLERATED. FOLLOW BACK UP WITH THE YOUR SERVICE TRAINER DOCTOR IN THE NEXT 1-2 DAYS FOR MANAGEMENT. Referrals: VIOLETTE YATSE MD (PCP) Time of Disposition: 19:00 I have reviewed the case, and I agree with, Diagnosis and Plan LUCIO DE LA CRUZ NP Jan 14, 2025 18:11
[2025-01-14 18:55] LABS: CREATININE 0.7 mg/dL (0.5-1.0); GLOMERULAR FILTR. RATE CALC 104.0 mL/min (>90); GLUCOSE,RANDOM 83.0 mg/dL (70-105); IMMATURE GRANULOCYTE ABSOLUTE 0.03 K/uL (0-1); NUCLEATED RED BLOOD CELLS 0.0 % (0.0-0.19); PLATELET COUNT (AUTO) 264 K/uL (130-400); RED BLOOD CELL COUNT(AUTO) 3.41 MIL/uL (4.00-5.50); RED CELL DISTRIBUTION WIDTH 26.5 % (11.0-15.5); SODIUM SERUM 135.0 mmol/L (136-145); UREA NITROGEN, BLOOD 8.0 mg/dL (7-18); WHITE BLOOD COUNT (AUTO) 8.4 K/uL (4.8-10.8)
[2025-01-14 19:22] VITALS: BP 138/75; PULSE 78; RESP 16; TEMP 97.9; O2SAT 98
--- NOTE | 2025-01-15 19:01 | EKG ---
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
== END 2025-01-14 19:37 | disposition home or self-care (01) ==
LOC: EDH 18:06
DX: D62 Acute posthemorrhagic anemia (principal); E87.6 Hypokalemia; Z88.1 Allergy status to other antibiotic agents; Z90.49 Acquired absence of other specified parts of digestive tract
CPT/HCPCS: 36415; 80048; 85025; 93005; 99284

== ENCOUNTER 2025-01-23 06:20 | Day surgery (SDC) | payer OTHER ==
[2025-01-21 10:13] LABS: IMMATURE GRANULOCYTE ABSOLUTE 0.04 K/uL (0-1); NUCLEATED RED BLOOD CELLS 0.0 % (0.0-0.19); PLATELET COUNT (AUTO) 279 K/uL (130-400); RED BLOOD CELL COUNT(AUTO) 3.70 MIL/uL (4.00-5.50); RED CELL DISTRIBUTION WIDTH 26.3 % (11.0-15.5); WHITE BLOOD COUNT (AUTO) 6.5 K/uL (4.8-10.8)
[2025-01-21 10:23] VITALS: BP 116/64; PULSE 68; RESP 13; TEMP 98.4
[2025-01-21 10:26] LABS: INR <= 0.93 (0.85-1.15)
[2025-01-21 10:30] LABS: ASPARTATE AMINOTRANSFERASE 39.0 U/L (10-37); CREATININE 0.8 mg/dL (0.5-1.0); GLOMERULAR FILTR. RATE CALC 89.0 mL/min (>90); GLUCOSE,RANDOM 166.0 mg/dL (70-105); SODIUM SERUM 137.0 mmol/L (136-145); TOTAL PROTEIN, SERUM 6.7 g/dL (6.0-8.3); UREA NITROGEN, BLOOD 11.0 mg/dL (7-18)
[~2025-01-23] VITALS: Ht 154.9 cm; Wt 66.0 kg
[2025-01-23] VITALS (22 sets, daily range): BP systolic 120–156; BP diastolic 58–84; PULSE 95–111; RESP 14–18; TEMP 97.2–97.9
[~2025-01-23 06:20] MED LIST changes: -ADAL40SY SQ; +FERR-82 PO; +MULT-660 PO; +NORE5TAB7 PO
[2025-01-23] MEDS: SCOPOLAMINE HYDROBROMIDE 1 EACH ADH..PATCH TD ONE (07:16)
[2025-01-23] MEDS: LACTATED RINGERS 1000ML 1,000 ML IV ONE (07:16)
[2025-01-23] MEDS: PHENAZOpyridine HCL 200 MG TAB 200 MG TABLET ONE (07:16)
[2025-01-23] MEDS ORDERED: LIDOCAINE PF 100MG/5ML (2%) SYRINGE 5ML ONE (07:50)
[2025-01-23] MEDS ORDERED: MIDAZOLAM HCL 1 MG/ML 2ML VIAL ONE (07:51)
[2025-01-23] MEDS ORDERED: SUCCINYLCHOLINE CHLORIDE 20 MG/ML 10 ML VIAL ONE (07:51)
[2025-01-23] MEDS ORDERED: SUGAMMADEX SODIUM 200 MG/2 ML VIAL IV ONE (08:03)
--- NOTE | 2025-01-23 10:43 | OP ---
Operative Note: DATE OF PROCEDURE: 01/23/25 SURGEON: ROXI ALVAREZ MD ARBORER: [na] ANESTHESIA: [general] ANESTHESIOLOGIST/SEO MARKETING SPECIALIST: [general] PREOPERATIVE DIAGNOSIS: [N920 menorrhagia with regular cycle] POSTOPERATIVE DIAGNOSIS: [same] SYNOPSIS: [na] PROCEDURE: [daVinci total laparoscopic hysterectomy, bilateral salpingectomy, cystoscopy] ESTIMATED BLOOD LOSS: [15 cc] INDICATIONS: [na] DESCRIPTION OF PROCEDURE: [The patient and her were visited in the [facility] area and the planned operation was stated in plain [place] and additional patient and questions were addressed and she was ready to proceed. She was taken to the operating room, placed under general anesthesia and prepped and draped in the usual sterile fashion in the dorsal lithotomy position in the [facility]. A time out was taken to confirm the patient's identity, her allergies and medication administration. A weighted speculum was placed in the vagina and the anterior cervix grasped with the single tooth tenaculum, the uterus sounded to 9 cm and the large vcare manipulator was sutured into place, a beth catheter was placed which drained orange urine. The single tooth tenaculum and weighted speculum were removed, the surgeon's gloves were changed and the patient was placed flat, decompression of the stomach was confirmed and infiltration of local, incision x 8 mm, placement of Veress needle with sterile saline and drop test confirmation of intraperitoneal placement and the abdomen was insufflated to 15 mm mercury, the direct vision davinci trocar, camera and sleeve were introduced and no trauma noted, the patient was placed in steepest trendelenberg position and then brought out just enough to keep the small bowel out of the field, infiltration, incision and placement of a midline supraumbilical airseal and right sided davinci sleeve were carried out atraum atically under direct vision and junior closes were placed at all sites. Before the umbilical placement the umbilicus was examined and there was no visible hernia and photos were taken. The robot was docked and the bipolar forceps and vessel sealer were introduced. The uterus was noted to be enlarged and very boggy and there was a large posterior fibroid vs adenomyosis. The remainder of the pelvis was normal. The left and then right tubes were tented up and excised from their mesenteric connections to the level of the uterus, the uterovarian and round ligaments were coagulated and divided and serial bites were taken down the uterus to just above the manipulator, the anterior and posterior leaves of the broad ligament were and the incisions taken down below the manipulator posteriorly and the bladder flap was begun anteriorly, the uterine arteries were coagulated. The monopolar scissors mostly cold were then used to develop the remainder of the bladder flap and the lateral vagina was entered bilaterally and sutures of barbed suture were started at the vaginal angles. the redundant colon made visualization somewhat difficult. The remainder of the connection to the vagina was then severed with the cut monopolar scissors and the uterus was brought out of the vagina, the area was copiously irrigated and the sutures were continued across to close the vagina. Two figure of eight pds sutures were placed for further support. The area was copiously irrigated and found to be hemostatic. The sutures and ends were brought out of the abdomen. A cystoscopy was performed showing normal bladder interior and normal ureteral orifices ejecting strong jets of orange urine. The instruments were removed and the robot was undocked, the abdomen was desufflated, the sleeves were removed, the previously placed junior closes were tied and the skin closed subcuticularly. Sponge, lap and needle counts were correct at the end of the case and the patient was awakened and taken to the recovery room in stable condition, the patient's will be called to notify him of her stability. roxi alvarez md facog facs ] ROXI ALVAREZ MD Jan 23, 2025 10:43
== END 2025-01-23 15:00 | disposition home or self-care (01) ==
LOC: DAH 06:20
PROVIDERS: ATTEND Obstetrics & Gynecology
DX: N92.0 Excessive and frequent menstruation with regular cycle (principal); N72 Inflammatory disease of cervix uteri; D25.1 Intramural leiomyoma of uterus; F41.9 Anxiety disorder, unspecified; K42.9 Umbilical hernia without obstruction or gangrene; D50.0 Iron deficiency anemia secondary to blood loss (chronic); N92.6 Irregular menstruation, unspecified; Z90.49 Acquired absence of other specified parts of digestive tract; Z79.4 Long term (current) use of insulin; Z79.01 Long term (current) use of anticoagulants; Z79.899 Other long term (current) drug therapy
CPT/HCPCS: 58571; S2900; 36415; 80053; 84703; 85025; 85610; 85730; 86156; 86850; 86870; 86900; 86901; 86922; 88305; A4344; J0330; J1100; J1171; J1885; J2003; J2250; J2270; J2371; J2405; J2704; J3010; J3490; J7030; J7120; A4213; A4215; A4216; A4221; A4222; A4223; A4510; A4600; A4649; A4663; A4930; A6260; J0665; J0690